=== PATIENT | female | born 1995 | race Caucasian/White ===

== ENCOUNTER 2017-10-21 21:17 | Emergency (ER) | payer OTHER ==
[2017-10-21 21:24] VITALS: RESP 18
[2017-10-21] MEDS ORDERED: ACETAMINOPHEN TAB 325 MG TAB PO STA (21:38)
--- NOTE | 2017-10-21 21:47 | ED ---
Abdominal Pain HPI - General Chief Complaint: Abdominal Pain Stated Complaint: 19 wks/abdominal pain Time Seen by Provider: 10/21/17 21:29 Source: patient, family Mode of arrival: ambulatory Limitations: no limitations - History of Present Illness Initial Comments: This patient is a 22-year-old woman who presents to be evaluated for suprapubic pain. The patient states that she had been lying in bed at approximately 90 minutes prior to arrival when she started noticing what she is describing as sharp, constant, lower abdominal pains. She indicates the bilateral lower quadrants and suprapubic area. The patient is unable to recall anything that precipitated pain. She denies any factors that seem to make the pain get better or worse. She has not noted any associated symptoms, denying change in urination, bowel movements, nausea or vomiting, fevers, rash. Patient denies any vaginal bleeding or discharge. She does state patient has [address] Valdez for her obstetrical care. She did have an ultrasound that was normal. MD Complaint: abdominal pain Onset/Timin -: hour(s) Location: suprapubic Radiation: none Migration to: no migration Severity: moderate Quality: sharp Consistency: constant Improves With: nothing Worsens With: nothing Associated Symptoms: denies other symptoms - Related Data LMP (females 10-50): other (19 weeks) Patient : Yes Home Medications Medication Instructions Recorded Confirmed Pnv,Calcium 72/Iron/Folic Acid 1 tab PO DAILY 10/21/17 10/21/17 [ Plus Tablet] Previous Rx's Medication Instructions Recorded Cephalexin [Keflex] 500 mg PO Q6HR #28 cap 10/21/17 Allergies Allergy/AdvReac Type Severity Reaction Status Date / Time Penicillins Allergy Itching Verified 10/21/17 21:30 Review of Systems ROS Statement: Those systems with pertinent positive or pertinent negative responses have been documented in the HPI. ROS Other: All systems not noted in ROS Statement are negative. Constitutional: Denies: fever, chills Respiratory: Denies: cough, dyspnea Cardiovascular: Denies: chest pain, palpitations Gastrointestinal: Reports: as per HPI, abdominal pain. Denies: nausea, vomiting , diarrhea, constipation, melena, hematochezia Genitourinary: Denies: dysuria, hematuria, discharge, abnormal menses Musculoskeletal: Denies: back pain Skin: Denies: rash Neurological: Denies: headache, weakness, numbness Past Medical History Past Medical History: No Reported History Additional Past Medical History / Comment(s): Hiatal Hernia History of Any Multi-Drug Resistant Organisms: None Reported Past Surgical History: No Surgical Hx Reported Past Psychological History: Anxiety Smoking Status: Current every day smoker Past Alcohol Use History: None Reported Past Drug Use History: None Reported General Exam Limitations: no limitations General appearance: alert, in no apparent distress Head exam: Present: atraumatic, normocephalic Eye exam: Present: normal appearance. Absent: scleral icterus, conjunctival injection ENT exam: Present: normal oropharynx Neck exam: Present: normal inspection Respiratory exam: Present: normal lung sounds bilaterally. Absent: respiratory distress, wheezes, rales, rhonchi, stridor Cardiovascular Exam: Present: regular rate, normal rhythm, normal heart sounds. Absent: systolic murmur, diastolic murmur, rubs, gallop GI/Abdominal exam: Present: soft, normal bowel sounds, mass (There is fullness in the lower abdomen with what appears to be gravid uterus palpable 1-2 cm below the umbilicus.). Absent: distended, tenderness, guarding, rebound, rigid , pulsatile mass, hernia Extremities exam: Present: normal inspection, normal capillary refill. Absent: pedal edema, calf tenderness Back exam: Present: normal inspection. Absent: CVA tenderness (R), CVA tenderness (L) Neurological exam: Present: alert Skin exam: Present: warm, dry, intact, normal color. Absent: rash Course Vital Signs 10/21/17 21:21 Temperature 98.9 F Pulse Rate 93 Respiratory 18 Rate Blood Pressure 112/74 O2 Sat by Pulse 100 Oximetry Medical Decision Making - Lab Data Result diagrams: 10/21/17 22:00 10/21/17 22:00 Lab Results 10/21/17 10/21/17 10/21/17 Range/Units 21:28 22:00 22:00 WBC 12.6 H (3.8-10.6) k/uL RBC 3.65 L (3.80-5.40) m/uL Hgb 11.0 L (11.4-16.0) gm/dL Hct 33.3 L (34.0-46.0) % MCV 91.1 (80.0-100.0) fL MCH 30.3 (25.0-35.0) pg MCHC 33.2 (31.0-37.0) g/dL RDW 13.0 (11.5-15.5) % Plt Count 258 (150-450) k/uL Neutrophils % 72 % Lymphocytes % 19 % Monocytes % 6 % Eosinophils % 2 % Basophils % 0 % Neutrophils # 9.0 H (1.3-7.7) k/uL Lymphocytes # 2.4 (1.0-4.8) k/uL Monocytes # 0.7 (0-1.0) k/uL Eosinophils # 0.2 (0-0.7) k/uL Basophils # 0.0 (0-0.2) k/uL Sodium 137 (137-145) mmol/L Potassium 4.0 (3.5-5.1) mmol/L Chloride 107 (98-107) mmol/L Carbon Dioxide 23 (22-30) mmol/L Anion Gap 7 mmol/L BUN 6 L (7-17) mg/dL Creatinine 0.40 L (0.52-1.04) mg/dL Est GFR (MDRD) Af Amer >60 (>60 ml/min/1.73 sqM) Est GFR (MDRD) Non-Af >60 (>60 ml/min/1.73 sqM) Glucose 78 (74-99) mg/dL Calcium 9.7 (8.4-10.2) mg/dL Total Bilirubin 0.2 (0.2-1.3) mg/dL AST 29 (14-36) U/L ALT 29 (9-52) U/L Alkaline Phosphatase 63 (38-126) U/L Total Protein 6.3 (6.3-8.2) g/dL Albumin 3.5 (3.5-5.0) g/dL Urine Color Light Yellow Urine Appearance Cloudy H (Clear) Urine pH 7.5 (5.0-8.0) Ur Specific [place] 1.004 (1.001-1.035) Urine Protein Negative (Negative) Urine Glucose (UA) Negative (Negative) Urine Ketones Negative (Negative) Urine Blood Negative (Negative) Urine Nitrite Negative (Negative) Urine Bilirubin Negative (Negative) Urine Urobilinogen <2.0 (<2.0) mg/dL Ur Leukocyte Esterase Small H (Negative) Urine RBC 2 (0-5) /hpf Urine WBC 2 (0-5) /hpf Ur Squamous Epith Cells 2 (0-4) /hpf Urine Bacteria Moderate H (None) /hpf Disposition Clinical Impression: Abdominal pain, Bacteriuria Disposition: HOME SELF-CARE Condition: Good Instructions: Abdominal Pain (ED), Urinary Tract Infection in (ED) Prescriptions: Cephalexin [Keflex] 500 mg PO Q6HR #28 cap Referrals: None,Stated [Primary Care Provider] - 1-2 days Gale Valdez, [Doctor of Osteopathic Medicine] - 1-2 days
[2017-10-21 21:51] LABS: Appearance,Urine Cloudy (Clear); Bacteria,Urine Moderate /hpf; Bilirubin,Urine Negative (Negative); Blood,Urine Negative (Negative); Color,Urine Light Yellow; Glucose,Urine (UA) Negative (Negative); Ketones,Urine Negative (Negative); Leukocyte Esterase,Urine Small (Negative); Nitrite,Urine Negative (Negative); PH, Urine 7.5 (5.0-8.0); Protein,Urine Negative (Negative); RBC,Urine 2 /hpf (0-5); Specific Gravity,Urine 1.004 (1.001-1.035); Squamous Epithelial Cell,Urine 2 /hpf (0-4); Urobilinogen,Urine <2.0 mg/dL (<2.0); WBC,Urine 2 /hpf (0-5)
[2017-10-21 22:12] LABS: Basophils % (A) 0 %; Eosinophils # (A) 0.2 k/uL (0-0.7); Eosinophils % (A) 2 %; HCT 33.3 % (34.0-46.0); Lymphocytes # (A) 2.4 k/uL (1.0-4.8); Lymphocytes % (A) 19 %; MCH 30.3 pg (25.0-35.0); MCHC 33.2 g/dL (31.0-37.0); MCV 91.1 fL (80.0-100.0); Monocytes # (A) 0.7 k/uL (0-1.0); Monocytes % (A) 6 %; Neutrophils % (A) 72 %; Platelet Count 258 k/uL (150-450); RBC 3.65 m/uL (3.80-5.40); WBC 12.6 k/uL (3.8-10.6)
[2017-10-21 22:30] LABS: Albumin 3.5 g/dL (3.5-5.0); Anion Gap 7 mmol/L; Calcium 9.7 mg/dL (8.4-10.2); Carbon Dioxide 23 mmol/L (22-30); Chloride 107 mmol/L (98-107); Glucose 78 mg/dL (74-99); Sodium 137 mmol/L (137-145); Total Bilirubin 0.2 mg/dL (0.2-1.3); Total Protein 6.3 g/dL (6.3-8.2)
[2017-10-21 22:34] LABS: ALT 29 U/L (9-52); AST 29 U/L (14-36); Alkaline Phosphatase 63 U/L (38-126); Blood Urea Nitrogen 6 mg/dL (7-17)
[2017-10-21 23:31] VITALS: BP 94/56; PULSE 71; TEMP 98.4
== END 2017-10-21 23:30 | disposition home or self-care (01) ==
LOC: EC 21:17
DX: O23.92 Unspecified genitourinary tract infection in pregnancy, second trimester (principal); R82.71 Bacteriuria; O99.89 Other specified diseases and conditions complicating pregnancy, childbirth and the puerperium; R10.31 Right lower quadrant pain; R10.32 Left lower quadrant pain; O99.332 Smoking (tobacco) complicating pregnancy, second trimester; F17.200 Nicotine dependence, unspecified, uncomplicated; Z79.899 Other long term (current) drug therapy; Z88.0 Allergy status to penicillin; Z3A.19 19 weeks gestation of pregnancy
CPT/HCPCS: 36415; 80053; 81001; 85025; 99284

== ENCOUNTER 2017-11-15 10:19 | Emergency (ER) | payer OTHER ==
[2017-11-15 10:24] VITALS: RESP 18
[2017-11-15] MEDS ORDERED: SODIUM CHLORIDE 0.9% 2,000 ML IV STA (10:39)
[2017-11-15] MEDS ORDERED: METOCLOPRAMIDE 5 MG/ML 2 ML VIAL IVP STA (10:39)
[2017-11-15] MEDS ORDERED: ACETAMINOPHEN IV (For NPO) 1,000 MG in EMPTY BAG 1 BAG IVPB STA (10:45)
--- NOTE | 2017-11-15 10:45 | ED ---
Nausea/Vomiting/Diarrhea HPI - General Chief complaint: Nausea/Vomiting/Diarrhea Stated complaint: Vomiting-22 wks Time Seen by Provider: 11/15/17 10:31 Source: patient, family, RN notes reviewed Mode of arrival: wheelchair Limitations: no limitations - History of Present Illness Initial comments: 22-year-old female presents emergency Department chief complaint of nausea vomiting. Patient states that symptoms started last night worse since morning. Patient states she cannot keep anything down. Patient states that she aches all over. Patient states that her family has been recently diagnosed with influenza. Patient denies any dysuria hematuria. Patient took Tylenol at 1: 00. Patient denies any headache or dizziness chest pain or shortness of breath. Denies any vaginal bleeding or vaginal discharge. Patient's FINANCIAL RECORDING CLERK is Dr. Valdez. Patient is A0. - Related Data Home Medications Medication Instructions Recorded Confirmed Pnv,Calcium 72/Iron/Folic Acid 1 tab PO DAILY 10/21/17 11/15/17 [ Plus Tablet] Previous Rx's Medication Instructions Recorded Cephalexin [Keflex] 500 mg PO Q8HR #15 cap 11/15/17 Oseltamivir [Tamiflu] 75 mg PO Q12HR #10 cap 11/15/17 Allergies Allergy/AdvReac Type Severity Reaction Status Date / Time Penicillins Allergy Itching Verified 11/15/17 11:11 Review of Systems ROS Statement: Those systems with pertinent positive or pertinent negative responses have been documented in the HPI. ROS Other: All systems not noted in ROS Statement are negative. Past Medical History Past Medical History: No Reported History Additional Past Medical History / Comment(s): Hiatal Hernia History of Any Multi-Drug Resistant Organisms: None Reported Past Surgical History: No Surgical Hx Reported Past Psychological History: Anxiety Smoking Status: Current every day smoker Past Alcohol Use History: None Reported Past Drug Use History: None Reported General Exam Limitations: no limitations General appearance: alert, in no apparent distress Head exam: Present: atraumatic, normocephalic, normal inspection Eye exam: Present: normal appearance, PERRL, EOMI. Absent: scleral icterus, conjunctival injection, periorbital swelling ENT exam: Present: normal exam, normal oropharynx, mucous membranes moist, TM's normal bilaterally, normal external ear exam Neck exam: Present: normal inspection, full ROM. Absent: tenderness, meningismus, lymphadenopathy Respiratory exam: Present: normal lung sounds bilaterally. Absent: respiratory distress, wheezes, rales, rhonchi, stridor Cardiovascular Exam: Present: normal rhythm, tachycardia, normal heart sounds. Absent: systolic murmur, diastolic murmur, rubs, gallop, clicks GI/Abdominal exam: Present: soft, normal bowel sounds. Absent: distended, tenderness, guarding, rebound, rigid Neurological exam: Present: alert Skin exam: Present: warm, dry, intact, normal color. Absent: rash Course Vital Signs 11/15/17 11/15/17 10:21 12:03 Temperature 100.2 F H 98.4 F Pulse Rate 113 H 108 H Respiratory 18 Rate Blood Pressure 107/56 95/50 O2 Sat by Pulse 100 96 Oximetry Medical Decision Making - Medical Decision Making 22-year-old female presented emergency from for nausea vomiting, body aches. Patient's influenza A positive. Patient does have some asymptomatic bacteriuria in . Patient was started on antibiotics urine cultured. Patient was well-hydrated emergency department states that she feels much better. Patient will be discharged follow-up with Dr. Valdez FINANCIAL RECORDING CLERK return for any worsening symptoms. - Lab Data Result diagrams: 11/15/17 11:10 11/15/17 11:10 Lab Results 11/15/17 11/15/17 11/15/17 Range/Units 11:10 11:10 11:10 WBC 9.5 (3.8-10.6) k/uL RBC 3.33 L (3.80-5.40) m/uL Hgb 10.2 L (11.4-16.0) gm/dL Hct 30.5 L (34.0-46.0) % MCV 91.5 (80.0-100.0) fL MCH 30.5 (25.0-35.0) pg MCHC 33.3 (31.0-37.0) g/dL RDW 12.1 (11.5-15.5) % Plt Count 234 (150-450) k/uL Neutrophils % 91 % Lymphocytes % 2 % Monocytes % 6 % Eosinophils % 0 % Basophils % 0 % Neutrophils # 8.7 H (1.3-7.7) k/uL Lymphocytes # 0.2 L (1.0-4.8) k/uL Monocytes # 0.5 (0-1.0) k/uL Eosinophils # 0.0 (0-0.7) k/uL Basophils # 0.0 (0-0.2) k/uL Sodium 136 L (137-145) mmol/L Potassium 3.7 (3.5-5.1) mmol/L Chloride 103 (98-107) mmol/L Carbon Dioxide 24 (22-30) mmol/L Anion Gap 9 mmol/L BUN 5 L (7-17) mg/dL Creatinine 0.50 L (0.52-1.04) mg/dL Est GFR (MDRD) Af Amer >60 (>60 ml/min/1.73 sqM) Est GFR (MDRD) Non-Af >60 (>60 ml/min/1.73 sqM) Glucose 85 (74-99) mg/dL Calcium 9.1 (8.4-10.2) mg/dL Total Bilirubin 0.1 L (0.2-1.3) mg/dL AST 24 (14-36) U/L ALT 29 (9-52) U/L Alkaline Phosphatase 77 (38-126) U/L Total Protein 6.2 L (6.3-8.2) g/dL Albumin 3.6 (3.5-5.0) g/dL Amylase 32 (30-110) U/L Lipase 75 (23-300) U/L Urine Color Urine Appearance (Clear) Urine pH (5.0-8.0) Ur Specific [place] (1.001-1.035) Urine Protein (Negative) Urine Glucose (UA) (Negative) Urine Ketones (Negative) Urine Blood (Negative) Urine Nitrite (Negative) Urine Bilirubin (Negative) Urine Urobilinogen (<2.0) mg/dL Ur Leukocyte Esterase (Negative) Urine WBC (0-5) /hpf Ur Squamous Epith Cells (0-4) /hpf Urine Bacteria (None) /hpf Urine Mucus (None) /hpf Influenza Type A RNA Detected H (Not Detectd) Influenza Type B (PCR) Not Detected (Not Detectd) 11/15/17 Range/Units 11:10 WBC (3.8-10.6) k/uL RBC (3.80-5.40) m/uL Hgb (11.4-16.0) gm/dL Hct (34.0-46.0) % MCV (80.0-100.0) fL MCH (25.0-35.0) pg MCHC (31.0-37.0) g/dL RDW (11.5-15.5) % Plt Count (150-450) k/uL Neutrophils % % Lymphocytes % % Monocytes % % Eosinophils % % Basophils % % Neutrophils # (1.3-7.7) k/uL Lymphocytes # (1.0-4.8) k/uL Monocytes # (0-1.0) k/uL Eosinophils # (0-0.7) k/uL Basophils # (0-0.2) k/uL Sodium (137-145) mmol/L Potassium (3.5-5.1) mmol/L Chloride (98-107) mmol/L Carbon Dioxide (22-30) mmol/L Anion Gap mmol/L BUN (7-17) mg/dL Creatinine (0.52-1.04) mg/dL Est GFR (MDRD) Af Amer (>60 ml/min/1.73 sqM) Est GFR (MDRD) Non-Af (>60 ml/min/1.73 sqM) Glucose (74-99) mg/dL Calcium (8.4-10.2) mg/dL Total Bilirubin (0.2-1.3) mg/dL AST (14-36) U/L ALT (9-52) U/L Alkaline Phosphatase (38-126) U/L Total Protein (6.3-8.2) g/dL Albumin (3.5-5.0) g/dL Amylase (30-110) U/L Lipase (23-300) U/L Urine Color Yellow Urine Appearance Cloudy H (Clear) Urine pH 8.0 (5.0-8.0) Ur Specific [place] 1.017 (1.001-1.035) Urine Protein 1+ H (Negative) Urine Glucose (UA) Negative (Negative) Urine Ketones 1+ H (Negative) Urine Blood Negative (Negative) Urine Nitrite Negative (Negative) Urine Bilirubin Negative (Negative) Urine Urobilinogen <2.0 (<2.0) mg/dL Ur Leukocyte Esterase Moderate H (Negative) Urine WBC 4 (0-5) /hpf Ur Squamous Epith Cells 7 H (0-4) /hpf Urine Bacteria Few H (None) /hpf Urine Mucus Rare H (None) /hpf Influenza Type A RNA (Not Detectd) Influenza Type B (PCR) (Not Detectd) Disposition Clinical Impression: Asymptomatic bacteriuria during , Influenza A, Nausea & vomiting Disposition: HOME SELF-CARE Condition: Stable Instructions: Influenza (ED) Additional Instructions: Please return to the Emergency Department if symptoms worsen or any other concerns. Prescriptions: Cephalexin [Keflex] 500 mg PO Q8HR #15 cap Oseltamivir [Tamiflu] 75 mg PO Q12HR #10 cap Referrals: None,Stated [Primary Care Provider] - 1-2 days Time of Disposition: 12:20
[2017-11-15 11:29] LABS: Basophils % (A) 0 %; Eosinophils % (A) 0 %; HCT 30.5 % (34.0-46.0); HGB 10.2 gm/dL (11.4-16.0); Lymphocytes # (A) 0.2 k/uL (1.0-4.8); Lymphocytes % (A) 2 %; MCH 30.5 pg (25.0-35.0); MCHC 33.3 g/dL (31.0-37.0); MCV 91.5 fL (80.0-100.0); Mean Platelet Volume 6.7; Monocytes # (A) 0.5 k/uL (0-1.0); Monocytes % (A) 6 %; Neutrophils # (A) 8.7 k/uL (1.3-7.7); Neutrophils % (A) 91 %; Platelet Count 234 k/uL (150-450); RBC 3.33 m/uL (3.80-5.40); RDW 12.1 % (11.5-15.5); WBC 9.5 k/uL (3.8-10.6)
[2017-11-15 11:35] LABS: ALT 29 U/L (9-52); AST 24 U/L (14-36); Albumin 3.6 g/dL (3.5-5.0); Alkaline Phosphatase 77 U/L (38-126); Amylase 32 U/L (30-110); Anion Gap 9 mmol/L; Blood Urea Nitrogen 5 mg/dL (7-17); Calcium 9.1 mg/dL (8.4-10.2); Carbon Dioxide 24 mmol/L (22-30); Chloride 103 mmol/L (98-107); Glucose 85 mg/dL (74-99); Lipase 75 U/L (23-300); Potassium 3.7 mmol/L (3.5-5.1); Sodium 136 mmol/L (137-145); Total Bilirubin 0.1 mg/dL (0.2-1.3); Total Protein 6.2 g/dL (6.3-8.2)
[2017-11-15 11:48] LABS: Appearance,Urine Cloudy (Clear); Bacteria,Urine Few /hpf; Bilirubin,Urine Negative (Negative); Blood,Urine Negative (Negative); Color,Urine Yellow; Glucose,Urine (UA) Negative (Negative); Ketones,Urine 1+ (Negative); Leukocyte Esterase,Urine Moderate (Negative); Mucus,Urine Rare /hpf; Nitrite,Urine Negative (Negative); Protein,Urine 1+ (Negative); Specific Gravity,Urine 1.017 (1.001-1.035); Squamous Epithelial Cell,Urine 7 /hpf (0-4); Urobilinogen,Urine <2.0 mg/dL (<2.0); WBC,Urine 4 /hpf (0-5)
[2017-11-15 13:01] VITALS: BP 110/59; PULSE 103; TEMP 98.7
== END 2017-11-15 13:00 | disposition home or self-care (01) ==
LOC: EC 10:19
DX: O99.89 Other specified diseases and conditions complicating pregnancy, childbirth and the puerperium (principal); R82.71 Bacteriuria; O99.512 Diseases of the respiratory system complicating pregnancy, second trimester; J10.1 Influenza due to other identified influenza virus with other respiratory manifestations; O21.2 Late vomiting of pregnancy; O99.332 Smoking (tobacco) complicating pregnancy, second trimester; F17.200 Nicotine dependence, unspecified, uncomplicated; Z3A.22 22 weeks gestation of pregnancy; Z88.0 Allergy status to penicillin; Z79.899 Other long term (current) drug therapy
CPT/HCPCS: 99284; 96365; 96375; 36415; 80053; 82150; 83690; 85025; 81001; 87086; 87502; J2765; J0131

== ENCOUNTER 2017-11-27 22:07 | Emergency (ER) | payer OTHER ==
[2017-11-27 22:19] VITALS: BP 103/56; PULSE 89; RESP 18; TEMP 98.5
--- NOTE | 2017-11-27 22:39 | XR ---
EXAMINATION TYPE: XR ankle complete LT DATE OF EXAM: 11/27/2017 COMPARISON: NONE HISTORY: Ankle pain TECHNIQUE: 3 views FINDINGS: There is soft tissue swelling over the lateral malleolus. Ankle mortise is anatomic. I see no fracture nor dislocation. IMPRESSION: Mild soft tissue swelling. No fracture seen.
--- NOTE | 2017-11-27 22:41 | ED ---
Lower Extremity Injury HPI - General Chief Complaint: Extremity Injury, Lower Stated Complaint: ankle injury Time Seen by Provider: 11/27/17 22:27 Source: patient, RN notes reviewed Mode of arrival: wheelchair Limitations: no limitations - History of Present Illness Initial Comments: 22-year-old female presented from for left ankle pain. Patient states that she was walking twisted her ankle and felt a pop. She is concerned that she had a prior fracture to this ankle. She has pain is on the lateral aspect and her some swelling. Denies any foot pain, proximal leg pain. Denies any paresthesias. Patient states she is though she did not fall and strike her abdomen. He has no complaints. Patient also complains of fluid in her right ear denies fevers or chills. - Related Data Home Medications Medication Instructions Recorded Confirmed Pnv,Calcium 72/Iron/Folic Acid 1 tab PO DAILY 10/21/17 11/15/17 [ Plus Tablet] Previous Rx's Medication Instructions Recorded Cephalexin [Keflex] 500 mg PO Q8HR #15 cap 11/15/17 Oseltamivir [Tamiflu] 75 mg PO Q12HR #10 cap 11/15/17 Allergies Allergy/AdvReac Type Severity Reaction Status Date / Time Penicillins Allergy Itching Verified 11/27/17 22:16 Review of Systems ROS Statement: Those systems with pertinent positive or pertinent negative responses have been documented in the HPI. ROS Other: All systems not noted in ROS Statement are negative. Past Medical History Past Medical History: No Reported History Additional Past Medical History / Comment(s): Hiatal Hernia History of Any Multi-Drug Resistant Organisms: None Reported Past Surgical History: No Surgical Hx Reported Past Psychological History: Anxiety Smoking Status: Current every day smoker Past Alcohol Use History: None Reported Past Drug Use History: None Reported General Exam Limitations: no limitations General appearance: alert, in no apparent distress Head exam: Present: atraumatic, normocephalic, normal inspection Eye exam: Present: normal appearance, PERRL, EOMI. Absent: scleral icterus, conjunctival injection, periorbital swelling ENT exam: Present: normal exam, normal oropharynx, mucous membranes moist, TM's normal bilaterally, normal external ear exam Neck exam: Present: normal inspection, full ROM. Absent: tenderness, meningismus, lymphadenopathy Respiratory exam: Present: normal lung sounds bilaterally. Absent: respiratory distress, wheezes, rales, rhonchi, stridor Cardiovascular Exam: Present: regular rate, normal rhythm, normal heart sounds. Absent: systolic murmur, diastolic murmur, rubs, gallop, clicks Extremities exam: Present: other (Left ankle there is mild swelling the lateral aspect, tenderness of the lateral malleolus no foot tenderness no proximal tib- fib tenderness neurovascular intact) Course Vital Signs 11/27/17 22:16 Temperature 98.5 F Pulse Rate 89 Respiratory 18 Rate Blood Pressure 103/56 O2 Sat by Pulse 98 Oximetry Medical Decision Making - Medical Decision Making 22-year-old female presented for left ankle pain, right ear pressure. Patient x -rays reviewed no acute fracture. Patient has some fluid in her right ear consistent with eustachian tube dysfunction there is no signs of infection. Disposition Clinical Impression: Left ankle sprain, Eustachian tube dysfunction Disposition: HOME SELF-CARE Condition: Stable Instructions: Ankle Sprain (ED) Additional Instructions: Please return to the Emergency Department if symptoms worsen or any other concerns. Referrals: None,Stated [Primary Care Provider] - 1-2 days Time of Disposition: 22:41
== END 2017-11-27 22:50 | disposition home or self-care (01) ==
LOC: EC 22:07
DX: O9A.212 Injury, poisoning and certain other consequences of external causes complicating pregnancy, second trimester (principal); S93.402A Sprain of unspecified ligament of left ankle, initial encounter; O99.332 Smoking (tobacco) complicating pregnancy, second trimester; F17.200 Nicotine dependence, unspecified, uncomplicated; Z3A.24 24 weeks gestation of pregnancy; Z88.0 Allergy status to penicillin; X50.1XXA Overexertion from prolonged static or awkward postures, initial encounter
CPT/HCPCS: 99283

== ENCOUNTER 2018-02-24 23:12 | Outpatient (CLI) | payer OTHER ==
[2018-02-24 23:47] VITALS: BP 128/81; PULSE 71; RESP 16; TEMP 98.2
--- NOTE | 2018-04-14 08:24 | P.MSEPDOC ---
Presenting Problems - Arrival Data Date of Arrival on Unit: 02/24/18 Time of Arrival on Unit: 23:10 Mode of Transport: Ambulatory - Complaint OB-Reason for Admission/Chief Complaint: Possible Onset of Labor Comment: ctx for 3 days stronger today Medical History - Information : 1 Para: 0 Term: 0 : 0 Abortions: Spontaneous or Elective: 0 Number of Living Children: 0 - Gestational Age Gestational Age by ALMAS (wks/days): 37 Weeks and 0 Days - History Complications: Smoker Comment: gbs unknown Review of Systems - Review of Systems Constitutional: No problems Breast: No problems ENT: No problems Cardiovascular: No problems Respiratory: No problems Gastrointestinal: No problems Genitourinary: No problems Musculoskeletal: No problems Neurological: No problems Skin: No problems Vital Signs - Temperature Temperature: 98.2 F Temperature Source: Temporal Artery Scan - Pulse Right Brachial Pulse Rate: 71 Pulse Assessment Method: Automatic Cuff - Respirations Respiratory Rate: 16 Oxygen Delivery Method: Room Air O2 Sat by Pulse Oximetry: 98 - Blood Pressure Right Arm Blood Pressure: 128/81 Blood Pressure Mean: 96 Blood Pressure Source: Automatic Cuff Medical Screen Scoring (Pre) - Cervical Exam Dilation: 1-3 cm = 1 Effacement: More than 50% = 2 Membranes: Intact - Uterine Contractions Frequency: > 5 minutes apart = 1 Duration: > 40 seconds = 2 Intensity: N/A - Maternal Vital Signs Maternal Temperature: N/A Maternal Blood Pressure: N/A Signs of Preeclampsia: N/A Maternal Respirations: N/A - Pain Assessment Pain Location and Character: Abdomen Pain Scale Used: Numeric (1 - 10) Pain Intensity: 7 Pain Description: *Acute, Tightness Pain Frequency: Intermittent Pain Duration: 3 Pain Duration Units: Hours Pain Behavior: None Exhibited Pain Aggravating Factors: Contractions - Maternal Trauma Maternal Trauma: N/A - Assessment Baseline FHR: 125 Heart Rate - NICHD Category: Category I (Normal) = 0 NST: Reactive Position: N/A Station: N/A - Total Score Total Score (Pre): 6 - Level of Risk Level of Risk: Medium (6-9) Medical Screen Scoring (Post) - Cervical Exam Dilation: 1-3 cm = 1 Effacement: More than 50% = 2 Membranes: Intact - Uterine Contractions Frequency: > 5 minutes apart = 1 Duration: > 40 seconds = 2 Intensity: N/A - Total Score Total Score (Post): 6 - Post Treatment Level of Risk Post Treatment Level of Risk: Medium (6-9) Physician Notification (Post) - Physician Notified Physician Notified Date: 02/25/18 Physician Notified Time: 00:56 Spoke With: Courtney New Order Received: Yes (discharge with instruction) - Notification Comment Comment: pt has appt Sunday Disposition - Disposition OB Disposition: Discharge to home, Written follow up instructions reviewed Discharge Date: 02/25/18 Discharge Time: 01:00 I agree with the RN Medical Screening Exam: Yes Risk & Benefit of care provided described in d/c instruction: Yes Diagnosis: FALSE LABOR BEFORE 37 COMPLETED WEEKS OF GEST, THIRD TRI
== END 2018-02-25 01:00 | disposition home or self-care (01) ==
LOC: FBPOP 23:12
PROVIDERS: ATTEND Obstetrics & Gynecology Obstetrics
DX: O47.1 False labor at or after 37 completed weeks of gestation (principal); Z3A.37 37 weeks gestation of pregnancy
CPT/HCPCS: 59025; G0463; 99213

== ENCOUNTER 2018-02-26 08:54 | Outpatient (CLI) | payer OTHER ==
[2018-02-26 09:16] VITALS: BP 115/72; PULSE 93; RESP 18; TEMP 96.8
--- NOTE | 2018-04-14 08:26 | P.MSEPDOC ---
Presenting Problems - Arrival Data Date of Arrival on Unit: 02/26/18 Time of Arrival on Unit: 08:54 Mode of Transport: Ambulatory - Complaint OB-Reason for Admission/Chief Complaint: Decreased Movement Medical History - Information : 1 Para: 0 Term: 0 : 0 Abortions: Spontaneous or Elective: 0 Number of Living Children: 0 - Gestational Age Gestational Age by ALMAS (wks/days): 37 Weeks and 1 Days - History Complications: Smoker Review of Systems - Review of Systems Constitutional: No problems Breast: No problems ENT: No problems Cardiovascular: No problems Respiratory: No problems Gastrointestinal: No problems Genitourinary: No problems Musculoskeletal: No problems Neurological: No problems Skin: No problems Vital Signs - Temperature Temperature: 96.8 F Temperature Source: Temporal Artery Scan - Pulse Right Brachial Pulse Rate: 93 - Respirations Respiratory Rate: 18 Oxygen Delivery Method: Room Air - Blood Pressure Right Arm Blood Pressure: 115/72 Blood Pressure Mean: 86 Medical Screen Scoring (Pre) - Cervical Exam Dilation: 1-3 cm = 1 Effacement: More than 50% = 2 Membranes: Intact - Uterine Contractions Frequency: > 5 minutes apart = 1 Duration: > 40 seconds = 2 Intensity: N/A - Maternal Vital Signs Maternal Temperature: N/A Maternal Blood Pressure: N/A Signs of Preeclampsia: N/A Maternal Respirations: N/A - Pain Assessment Pain Scale Used: Numeric (1 - 10) Pain Intensity: 6 Pain Description: *Acute, Cramping, Pressure Pain Radiation Location: none Pain Frequency: Daily Pain Behavior: None Exhibited - Maternal Trauma Maternal Trauma: N/A - Assessment Position: N/A Station: N/A - Total Score Total Score (Pre): 6 - Level of Risk Level of Risk: Medium (6-9) Physician Notification (Pre) - Physician Notified Physician Notified Date: 02/26/18 Medical Screen Scoring (Post) - Cervical Exam Dilation: 1-3 cm = 1 Effacement: More than 50% = 2 Membranes: Intact - Uterine Contractions Frequency: > 5 minutes apart = 1 Duration: > 40 seconds = 2 - Maternal Vital Signs Maternal Temperature: N/A Signs of Preeclampsia: N/A Maternal Respirations: N/A - Maternal Trauma Maternal Trauma: N/A - Assessment Heart Rate: 140 Heart Rate - NICHD Category: Category I (Normal) = 0 NST: Reactive Position: N/A Station: N/A - Total Score Total Score (Post): 6 - Post Treatment Level of Risk Post Treatment Level of Risk: Medium (6-9) Physician Notification (Post) - Physician Notified Physician Notified Date: 02/26/18 Physician Notified Time: 10:49 Physician/Practitioner Notified:: Dr. Valdez Spoke With: Dr. Valdez New Order Received: Yes - Notification Comment Comment: discharge pt home and follow up in office tomorrow with Dr. Valdez at scheduled appt Disposition - Disposition OB Disposition: Triage, Discharge to home, Written follow up instructions reviewed Discharge Date: 02/26/18 Discharge Time: 11:00 I agree with the RN Medical Screening Exam: Yes Risk & Benefit of care provided described in d/c instruction: Yes Diagnosis: DECREASED MOVEMENTS, THIRD TRIMESTER, FETUS 1
== END 2018-02-26 11:00 | disposition home or self-care (01) ==
LOC: FBPOP 08:54
PROVIDERS: ATTEND Obstetrics & Gynecology Obstetrics
DX: O36.8131 Decreased fetal movements, third trimester, fetus 1 (principal); O99.333 Smoking (tobacco) complicating pregnancy, third trimester; Z3A.37 37 weeks gestation of pregnancy
CPT/HCPCS: 59025; G0463; 99213

== ENCOUNTER 2018-03-11 05:40 | Inpatient (IN) | payer OTHER ==
[2018-03-11] MEDS ORDERED: OXYTOCIN 10 UNIT/ML 1 ML VIAL IM PRN (06:06)
[2018-03-11] MEDS ORDERED: CARBOPROST TROMETHAMINE 250 MCG/ML 1 ML AMP IM PRN (06:06)
[2018-03-11] MEDS ORDERED: TERBUTALINE 1 MG/ML VIAL SQ PRN (06:06)
[2018-03-11] MEDS ORDERED: LIDOCAINE 1% (PF) 10 MG/ML (30 ML SDV) SQ PRN (06:06)
[2018-03-11] MEDS ORDERED: METHYLERGONOVINE 0.2 MG/ML 1 ML AMP IM PRN (06:06)
[2018-03-11] MEDS ORDERED: OXYTOCIN 20 UNITS/1000 ML NS 1,000 ML IV SCH ×2 (06:15→11:30)
[2018-03-11 06:17] LABS: Basophils % (A) 0 %; Eosinophils # (A) 0.2 k/uL (0-0.7); Eosinophils % (A) 2 %; HGB 11.1 gm/dL (11.4-16.0); Lymphocytes # (A) 2.4 k/uL (1.0-4.8); Lymphocytes % (A) 18 %; MCH 30.2 pg (25.0-35.0); MCHC 33.6 g/dL (31.0-37.0); MCV 89.8 fL (80.0-100.0); Mean Platelet Volume 7.4; Monocytes # (A) 0.8 k/uL (0-1.0); Monocytes % (A) 6 %; Neutrophils # (A) 9.9 k/uL (1.3-7.7); Neutrophils % (A) 73 %; Platelet Count 232 k/uL (150-450); RBC 3.67 m/uL (3.80-5.40); RDW 13.2 % (11.5-15.5); WBC 13.4 k/uL (3.8-10.6)
[2018-03-11] MEDS: LACTATED RINGERS 1,000 ML IV SCH ×2 (07:11→08:29)
[2018-03-11 07:28] VITALS: BMI 23.3
[2018-03-11] MEDS ORDERED: fentaNYL (PF) 50 MCG/ML 5 ML AMP ONE (08:08)
[2018-03-11] MEDS ORDERED: BUPIVACAINE (PF) 0.25% 30 ML VIAL ONE (08:08)
[2018-03-11] MEDS ORDERED: SODIUM CHLORIDE 0.9% 100 ML BAG ONE (08:08)
--- NOTE | 2018-03-11 11:12 | P.HPOB ---
History of Present Illness H&P Date: 03/11/18 Chief Complaint: IUP @ 39 0/7 weeks, SUBHASH This is a very pleasant 22-year-old 1 para 0 at 39-0/7 weeks that presents for elective induction of labor. Patient was noted to be 4 cm in the office and elected induction. Patient states she is having occasional contractions, notes good movement, no loss of fluid or vaginal bleeding. On blood work she had a blood type of B+, rubella immune, hepatitis B surface antigen negative, HIV negative, GBS negative care has been uncomplicated with myself Review of Systems Constitutional: Reports fatigue, Denies chills, Denies fever Cardiovascular: Denies edema Respiratory: Denies cough, Denies dyspnea Gastrointestinal: Denies constipation, Denies diarrhea Genitourinary: Reports Past Medical History Past Medical History: No Reported History Additional Past Medical History / Comment(s): Hiatal Hernia History of Any Multi-Drug Resistant Organisms: None Reported Past Surgical History: No Surgical Hx Reported Past Anesthesia/Blood Transfusion Reactions: No Reported Reaction Past Psychological History: Anxiety Smoking Status: Current every day smoker Past Alcohol Use History: None Reported Past Drug Use History: None Reported - Past Family History Mother Additional Family Medical History / Comment(s): asthma Medications and Allergies Home Medications Medication Instructions Recorded Confirmed Type Pnv No.95/Ferrous Fum/Folic AC 1 each PO DAILY 02/26/18 03/11/18 History [ Multivitamin Tablet] Allergies Allergy/AdvReac Type Severity Reaction Status Date / Time Penicillins Allergy Itching Verified 03/11/18 06:00 Exam Osteopathic Statement: *. No significant issues noted on an osteopathic structural exam other than those noted in the History and Physical/Consult. - Vital Signs Vital signs: Vital Signs Temp Pulse Resp BP 03/11/18 07:18 97.9 F 66 16 122/80 Intake and Output 03/10/18 03/11/18 03/11/18 22:59 06:59 14:59 Other: # Voids 1 Weight 61.689 kg 61.689 kg - OBG Physical Exam Abdomen: gravid Cervix: 4/100/-2, anterior, AROM clear fluid noted Results Result Diagrams: 03/11/18 06:10 Abnormal Lab Results - Last 24 Hours (Table) 03/11/18 Range/Units 06:10 WBC 13.4 H (3.8-10.6) k/uL RBC 3.67 L (3.80-5.40) m/uL Hgb 11.1 L (11.4-16.0) gm/dL Hct 33.0 L (34.0-46.0) % Neutrophils # 9.9 H (1.3-7.7) k/uL Assessment and Plan (1) Term Current Visit: Yes Status: Acute Code(s): Z34.80 - ENCOUNTER FOR SUPRVSN OF NORMAL , UNSP TRIMESTER SNOMED Code(s): 85465050 Plan: Will admit to labor and delivery with Pitocin induction of labor. Patient does desire epidural which will be placed when she becomes uncomfortable. Anticipate spontaneous vaginal delivery later this afternoon
[2018-03-11] MEDS ORDERED: LANOLIN CREAM 5 GM TUBE TOPICAL PRN (11:18)
[2018-03-11] MEDS ORDERED: diphenhydrAMINE 25 MG CAP PO PRN (11:18)
[2018-03-11] MEDS ORDERED: ZOLPIDEM 5 MG TAB PO PRN (11:18)
[2018-03-11] MEDS ORDERED: HYDROCORTISONE 2.5% RECTAL CREAM 30 GM TUBE RECTAL PRN (11:18)
[2018-03-11] MEDS ORDERED: SIMETHICONE 80 MG CHEWABLE PO PRN (11:18)
[2018-03-11] MEDS ORDERED: diphenhydrAMINE 50 MG/ML 1 ML VIAL IVP PRN ×2 (11:18)
[2018-03-11] MEDS ORDERED: ACETAMINOPHEN TAB 325 MG TAB PO PRN (11:18)
[2018-03-11] MEDS ORDERED: diphenhydrAMINE 50 MG CAP PO PRN (11:18)
[2018-03-11] MEDS ORDERED: IBUPROFEN 600 MG TAB PO PRN (11:18)
[2018-03-11] MEDS ORDERED: WITCH HAZEL 1 EACH MED..PAD TOPICAL PRN (11:18)
[2018-03-11] MEDS ORDERED: BENZOCAINE/MENTHOL SPRAY 1 GM/SPRAY AEROSOL TOPICAL PRN (11:18)
--- NOTE | 2018-03-11 11:18 | P.PROBDLV ---
Vaginal Delivery Note - . Vaginal Delivery Note: This is a very pleasant 22-year-old 2 para 0010 at 39-0/7 weeks that presented for elective induction of labor. Patient progressed through labor without difficulty, amniotomy was performed clear fluid was obtained patient received an epidural for analgesia. Patient progressed to complete began pushing and had a vacuum-assisted vaginal delivery secondary to bradycardia with heart tones noted to be in the 80s despite position change. Vacuum was applied without difficulty, position was confirmed to be occiput anterior, vacuum was noted to be in the green zone for pressure 1 pull and infant was delivered, spontaneous cry was noted on delivery. Estimated blood loss approximate 200 mL. On inspection the patient' s vaginal vault a first degree vaginal laceration was noted and repaired in the usual fashion with 3-0 Rapide. Mother and infant tolerated delivery well and are resting comfortably.
[2018-03-11 13:59] VITALS: RESP 18
[2018-03-11] MEDS: SENNOSIDES-DOCUSATE SODIUM 1 EACH TAB PO SCH (19:51)
[2018-03-12 07:45] VITALS: BP 108/70; PULSE 66; TEMP 98.1
--- NOTE | 2018-03-12 08:04 | P.DS ---
Providers Date of admission: 03/11/18 05:40 Expected date of discharge: 03/12/18 Attending physician: Gale Valdez Primary care physician: Stated None - Discharge Diagnosis(es) (1) Term Current Visit: Yes Status: Acute (2) Status post vaginal delivery Current Visit: Yes Status: Acute Hospital Course: This is a very pleasant 22-year-old 2 para 0010 at 39-0/7 weeks that presented on 64 for elective induction of labor. Patient was started on Pitocin and amniotomy was performed yielding clear fluid patient eventually got an epidural for analgesia and progressed to complete and had a normal spontaneous vaginal delivery of a viable male infant at 1052, weight of 5 lbs. 11 oz. with Apgars of 9 and 9 at one and 5 minutes or sexually. She did sustain a first-degree vaginal laceration was was repaired without difficulty. Patient's course has been uneventful. On this day #1 she is ambulating and voiding without difficulty. She is tolerating a regular diet without nausea or vomiting. She states her pain is well-controlled and she wishes to be discharged home. Patient Condition at Discharge: Good Plan - Discharge Summary New Discharge Prescriptions: No Action Pnv No.95/Ferrous Fum/Folic AC [ Multivitamin Tablet] 1 each PO DAILY Discharge Medication List Pnv No.95/Ferrous Fum/Folic AC [ Multivitamin Tablet] 1 each PO DAILY [History] Follow up Appointment(s)/Referral(s): Gale Valdez DO [Doctor of Osteopathic Medicine] - 1 Week Patient Instructions/Handouts: Vaginal Delivery (DC) Activity/Diet/Wound Care/Special Instructions: no intercourse or tub baths until 6 week . Discharge Disposition: HOME SELF-CARE
[2018-03-12] MEDS ORDERED: PRENATAL VIT-IRON-FOLIC ACID 1 EACH CAP PO SCH (09:00)
[2018-03-12] MEDS: SENNOSIDES-DOCUSATE SODIUM 1 EACH TAB PO SCH (09:30)
== END 2018-03-12 13:15 | disposition home or self-care (01) | DRG 775 ==
LOC: 4FBP 05:40
PROVIDERS: ADMIT Obstetrics & Gynecology Obstetrics; ATTEND Obstetrics & Gynecology Obstetrics
PROC: 10907ZC Drainage of Amniotic Fluid, Therapeutic from Products of Conception, Via Natural or Artificial Opening (ICD-10-PCS; principal; 2018-03-11)
PROC: 3E0R3NZ Introduction of Analgesics, Hypnotics, Sedatives into Spinal Canal, Percutaneous Approach (ICD-10-PCS; principal; 2018-03-11)
PROC: 0HQ9XZZ Repair Perineum Skin, External Approach (ICD-10-PCS; principal; 2018-03-11)
PROC: 3E033VJ Introduction of Other Hormone into Peripheral Vein, Percutaneous Approach (ICD-10-PCS; principal; 2018-03-11)
PROC: 00HU33Z Insertion of Infusion Device into Spinal Canal, Percutaneous Approach (ICD-10-PCS; principal; 2018-03-11)
PROC: 10D07Z6 Extraction of Products of Conception, Vacuum, Via Natural or Artificial Opening (ICD-10-PCS; principal; 2018-03-11)
DX: O76 Abnormality in fetal heart rate and rhythm complicating labor and delivery (principal); Z37.0 Single live birth; O99.334 Smoking (tobacco) complicating childbirth; F17.200 Nicotine dependence, unspecified, uncomplicated; Z3A.39 39 weeks gestation of pregnancy; O70.0 First degree perineal laceration during delivery; Z88.0 Allergy status to penicillin
CPT/HCPCS: 85025; 88307

== ENCOUNTER → 2019-08-22 | Outpatient (CLI) | payer OTHER ==
--- NOTE | 2019-08-22 12:33 | US ---
EXAMINATION TYPE: Transabdominal DATE OF EXAM: 08/22/2019 11:19 AM COMPARISON: NONE CLINICAL HISTORY: Z36 Confirm dates. EXAM PERFORMED: Transabdominal (TA) EXAM MEASUREMENTS: GESTATIONAL AGE / DATING Physician Established: Not yet established Dates by LMP: LMP unknown Dates by First Scan: No previous this is first scan Dates by Current Scan for: (8 weeks/1 days) EDC: 04/01/20 MATERNAL ANATOMY Uterus: 10.0 x 5.4 x 7.6cm Right Ovary: 2.7 x 1.3 x 1.2cm Left Ovary: 3.4 x 1.9 x 2.5cm Post CDS / Adnexa: wnl GESTATION / SURVEY CRL: 1.7cm (8 weeks/1 days) Yolk Sac (normal less than 6mm): 3mm Heart Rate: 176 bpm Rhythm: Normal IUP: Viable IUP Date of LMP: unknown Beta HcG (if available): Not available at this time Live IUP 8 weeks 1 day. IMPRESSION: Single live intrauterine with a calculated sonographic age of 8 weeks and 1 day and estimated date of delivery of 04/01/2020.
== END | disposition home or self-care (01) ==
LOC: RADUSWWP 11:00
PROVIDERS: ATTEND Obstetrics & Gynecology
DX: Z36.89 Encounter for other specified antenatal screening (principal); Z3A.08 8 weeks gestation of pregnancy
CPT/HCPCS: 76801

== ENCOUNTER 2020-03-09 14:39 | Outpatient (CLI) | payer OTHER ==
[2020-03-09 16:00] VITALS: BP 110/68; PULSE 101; RESP 18; TEMP 97.4
--- NOTE | 2020-03-11 09:47 | P.MSEPDOC ---
Presenting Problems - Arrival Data Date of Arrival on Unit: 03/09/20 Time of Arrival on Unit: 14:39 Mode of Transport: Ambulatory - Complaint OB-Reason for Admission/Chief Complaint: Rule Out PROM Comment: pt presented to triage for possible premature SROM, stated she had some leaking around 1200 and still feels like she is leaking, not wearing a pad Medical History - Information : 4 Para: 1 Term: 1 : 0 Abortions: Spontaneous or Elective: 2 Number of Living Children: 1 - Gestational Age Gestational Age by ALMAS (wks/days): 36 Weeks and 5 Days - History Complications: Smoker Review of Systems - Review of Systems Constitutional: No problems Breast: No problems ENT: No problems Cardiovascular: No problems Respiratory: No problems Gastrointestinal: No problems Genitourinary: No problems Musculoskeletal: No problems Neurological: No problems Skin: No problems Vital Signs - Temperature Temperature: 97.4 F Temperature Source: Temporal Artery Scan - Pulse Right Brachial Pulse Rate: 101 Pulse Assessment Method: Automatic Cuff - Respirations Respiratory Rate: 18 Oxygen Delivery Method: Room Air O2 Sat by Pulse Oximetry: 98 - Blood Pressure Right Arm Blood Pressure: 110/68 Blood Pressure Mean: 82 Blood Pressure Source: Automatic Cuff Medical Screen Scoring (Pre) - Cervical Exam Dilation: 1-3 cm = 1 Effacement: More than 50% = 2 Membranes: Intact - Uterine Contractions Frequency: > or = 36 weeks =2 Duration: N/A Intensity: N/A - Maternal Vital Signs Maternal Temperature: N/A Maternal Blood Pressure: N/A Signs of Preeclampsia: N/A Maternal Respirations: N/A - Maternal Trauma Maternal Trauma: N/A - Assessment - Baby A Baseline FHR: 145 Heart Rate - NICHD Category: Category I (Normal) = 0 NST: Reactive Position: N/A Station: N/A - Total Score - Baby A Total Score - Baby A: 5 - Total Score - Baby B Total Score - Baby B: 5 - Total Score - Baby C Total Score - Baby C: 5 - Level of Risk - Baby A Level of Risk - Baby A: Low (0-5) - Level of Risk - Baby B Level of Risk - Baby B: Low (0-5) - Level of Risk - Baby C Level of Risk - Baby C: Low (0-5) Physician Notification (Pre) - Physician Notified Physician Notified Date: 03/09/20 Physician Notified Time: 15:28 New Order Received: Yes - Notification Comment Comment: amniosure negative, discharge pt home and call for appt for or Sunday Disposition - Disposition OB Disposition: Discharge to home Discharge Date: 03/09/20 Discharge Time: 15:40 I agree with the RN Medical Screening Exam: Yes Risk & Benefit of care provided described in d/c instruction: Yes Diagnosis: FALSE LABOR BEFORE 37 COMPLETED WEEKS OF GEST, THIRD TRI
== END 2020-03-09 15:40 | disposition home or self-care (01) ==
LOC: FBPOP 14:39
PROVIDERS: ATTEND Obstetrics & Gynecology
DX: O47.03 False labor before 37 completed weeks of gestation, third trimester (principal); O99.333 Smoking (tobacco) complicating pregnancy, third trimester; F17.200 Nicotine dependence, unspecified, uncomplicated; Z3A.36 36 weeks gestation of pregnancy
CPT/HCPCS: 59025; 84112; G0463; 99213

== ENCOUNTER 2020-03-23 22:47 | Outpatient (CLI) | payer OTHER ==
[2020-03-23 23:08] VITALS: BP 118/74; PULSE 87; RESP 16; TEMP 97.3
--- NOTE | 2020-03-31 23:12 | P.MSEPDOC ---
Presenting Problems - Arrival Data Date of Arrival on Unit: 03/23/20 Time of Arrival on Unit: 22:44 Mode of Transport: Ambulatory - Complaint OB-Reason for Admission/Chief Complaint: Possible Onset of Labor Medical History - Information : 4 Para: 1 Abortions: Spontaneous or Elective: 2 Number of Living Children: 1 - Gestational Age Gestational Age by ALMAS (wks/days): 38 Weeks and 6 Days Review of Systems - Review of Systems Constitutional: No problems Breast: No problems ENT: No problems Cardiovascular: No problems Respiratory: No problems Gastrointestinal: No problems Genitourinary: No problems Musculoskeletal: No problems Neurological: No problems Skin: No problems Vital Signs - Temperature Temperature: 97.3 F Temperature Source: Temporal Artery Scan - Pulse Right Sitting Brachial Pulse Rate: 87 Pulse Assessment Method: Automatic Cuff - Respirations Respiratory Rate: 16 Oxygen Delivery Method: Room Air O2 Sat by Pulse Oximetry: 98 - Blood Pressure Right Arm Sitting Blood Pressure: 118/74 Blood Pressure Mean: 88 Blood Pressure Source: Automatic Cuff Medical Screen Scoring (Pre) - Cervical Exam Dilation: 4-7 cm = 2 Effacement: More than 50% = 2 Membranes: Intact - Uterine Contractions Frequency: > 5 minutes apart = 1 Duration: > 40 seconds = 2 Intensity: Contraction palpated strong = 1 - Maternal Vital Signs Maternal Temperature: N/A Maternal Blood Pressure: N/A Signs of Preeclampsia: N/A Maternal Respirations: N/A - Maternal Trauma Maternal Trauma: N/A - Assessment - Baby A Baseline FHR: 130 Heart Rate - NICHD Category: Category II (Indeterminate) = 3 NST: Reactive Position: N/A Station: N/A - Total Score - Baby A Total Score - Baby A: 11 - Total Score - Baby B Total Score - Baby B: 8 - Total Score - Baby C Total Score - Baby C: 8 - Level of Risk - Baby A Level of Risk - Baby A: High (10+) - Level of Risk - Baby B Level of Risk - Baby B: Medium (6-9) - Level of Risk - Baby C Level of Risk - Baby C: Medium (6-9) Disposition - Disposition OB Disposition: Discharge to home Discharge Date: 03/24/20 Discharge Time: 00:10 I agree with the RN Medical Screening Exam: Yes Risk & Benefit of care provided described in d/c instruction: Yes Diagnosis: FALSE LABOR BEFORE 37 COMPLETED WEEKS OF GEST, THIRD TRI
== END 2020-03-24 00:10 | disposition home or self-care (01) ==
LOC: FBPOP 22:47
PROVIDERS: ATTEND Obstetrics & Gynecology
DX: O47.03 False labor before 37 completed weeks of gestation, third trimester (principal); Z3A.38 38 weeks gestation of pregnancy
CPT/HCPCS: 59025; G0463; 99213

== ENCOUNTER 2020-03-24 03:28 | Inpatient (IN) | payer OTHER ==
[2020-03-24] MEDS: LACTATED RINGERS 1,000 ML IV SCH ×2 (03:30→04:11)
[2020-03-24] MEDS ORDERED: CARBOPROST TROMETHAMINE 250 MCG/ML 1 ML AMP IM PRN (03:40)
[2020-03-24] MEDS ORDERED: TERBUTALINE 1 MG/ML VIAL SQ PRN (03:40)
[2020-03-24] MEDS ORDERED: METHYLERGONOVINE 0.2 MG/ML 1 ML AMP IM PRN (03:40)
[2020-03-24] MEDS ORDERED: LIDOCAINE 0.5% (PF) 5 MG/ML (50 ML SDV) SQ PRN (03:40)
[2020-03-24] MEDS ORDERED: OXYTOCIN 10 UNIT/ML 1 ML VIAL IM PRN (03:40)
[2020-03-24 03:54] LABS: Basophils % (A) 0 %; Eosinophils # (A) 0.1 k/uL (0-0.7); Eosinophils % (A) 1 %; HCT 33.4 % (34.0-46.0); HGB 11.2 gm/dL (11.4-16.0); Lymphocytes # (A) 4.5 k/uL (1.0-4.8); Lymphocytes % (A) 21 %; MCHC 33.7 g/dL (31.0-37.0); MCV 92.2 fL (80.0-100.0); Mean Platelet Volume 7.6; Monocytes % (A) 5 %; Neutrophils # (A) 14.9 k/uL (1.3-7.7); Neutrophils % (A) 72 %; Platelet Count 236 k/uL (150-450); RBC 3.62 m/uL (3.80-5.40); RDW 12.5 % (11.5-15.5); WBC 20.9 k/uL (3.8-10.6)
[2020-03-24] MEDS ORDERED: HYDROCORTISONE 2.5% RECTAL CREAM 30 GM TUBE RECTAL PRN (05:48)
[2020-03-24] MEDS ORDERED: ACETAMINOPHEN TAB 325 MG TAB PO PRN (05:48)
[2020-03-24] MEDS ORDERED: WITCH HAZEL 1 EACH MED..PAD TOPICAL PRN (05:48)
[2020-03-24] MEDS ORDERED: diphenhydrAMINE 50 MG/ML 1 ML VIAL IVP PRN ×2 (05:48)
[2020-03-24] MEDS ORDERED: diphenhydrAMINE 25 MG CAP PO PRN (05:48)
[2020-03-24] MEDS ORDERED: LANOLIN CREAM 5 GM TUBE TOPICAL PRN (05:48)
[2020-03-24] MEDS ORDERED: diphenhydrAMINE 50 MG CAP PO PRN (05:48)
[2020-03-24] MEDS ORDERED: ZOLPIDEM 5 MG TAB PO PRN (05:48)
[2020-03-24] MEDS ORDERED: SIMETHICONE 80 MG CHEWABLE PO PRN (05:48)
[2020-03-24] MEDS ORDERED: BENZOCAINE/MENTHOL SPRAY 1 GM/SPRAY AEROSOL TOPICAL PRN (05:48)
--- NOTE | 2020-03-24 05:54 | P.HPOB ---
History of Present Illness H&P Date: 03/24/20 Chief Complaint: normal labor 24 year old presents at 38 weeks and 6 days in active labor. Her cervix is 8 cm dilated, 100% effaced, and -2 station. Nalini every 2-4 minutes. heart tones 130 with moderate variability and reactive. Review of Systems All systems: negative Constitutional: Denies chills, Denies fever Eyes: denies blurred vision, denies pain Ears, nose, mouth and throat: Denies headache, Denies sore throat Cardiovascular: Denies chest pain, Denies shortness of breath Respiratory: Denies cough Gastrointestinal: Denies abdominal pain, Denies diarrhea, Denies nausea, Denies vomiting Genitourinary: Denies dysuria, Denies hematuria Musculoskeletal: Denies myalgias Integumentary: Denies pruritus, Denies rash Neurological: Denies numbness, Denies weakness Psychiatric: Denies anxiety, Denies depression Endocrine: Denies fatigue, Denies weight change Past Medical History Past Medical History: No Reported History Additional Past Medical History / Comment(s): Hiatal Hernia. Obstetric history: First was a miscarriage second was a full-term vaginal delivery, third was a miscarriage, this is her fourth . She has had care with me since the first trimester. Blood type is B+, antibodies negative, rubella immune, RPR nonreactive, hepatitis B negative, HIV nonreactive, toxoplasmosis IgG is positive but IgM negative. GBS negative. History of Any Multi-Drug Resistant Organisms: None Reported Past Surgical History: No Surgical Hx Reported Past Anesthesia/Blood Transfusion Reactions: No Reported Reaction Smoking Status: Current every day smoker - Past Family History Mother Additional Family Medical History / Comment(s): asthma Medications and Allergies Home Medications Medication Instructions Recorded Confirmed Type Pnv No.95/Ferrous Fum/Folic AC 1 each PO DAILY 02/26/18 03/24/20 History [ Multivitamin Tablet] Allergies Allergy/AdvReac Type Severity Reaction Status Date / Time Penicillins Allergy Itching Verified 03/24/20 03:40 Exam Osteopathic Statement: *. No significant issues noted on an osteopathic structural exam other than those noted in the History and Physical/Consult. Intake and Output 03/23/20 03/23/20 03/24/20 14:59 22:59 06:59 Other: Weight 64.41 kg Heart: Regular rate and rhythm Lungs: Clear to auscultation bilaterally Abdomen: Soft, nontender Extremities: Negative Homans sign Results Result Diagrams: 03/24/20 03:35 Abnormal Lab Results - Last 24 Hours (Table) 03/24/20 Range/Units 03:35 WBC 20.9 H (3.8-10.6) k/uL RBC 3.62 L (3.80-5.40) m/uL Hgb 11.2 L (11.4-16.0) gm/dL Hct 33.4 L (34.0-46.0) % Neutrophils # 14.9 H (1.3-7.7) k/uL Assessment and Plan (1) Normal labor Current Visit: Yes Status: Acute Code(s): O80 - ENCOUNTER FOR FULL-TERM UNCOMPLICATED DELIVERY; Z37.9 - OUTCOME OF DELIVERY, UNSPECIFIED SNOMED Code(s): 49965980 Plan: 1. Admit to family place 2. Anticipate normal vaginal delivery
[2020-03-24] MEDS ORDERED: OXYTOCIN 20 UNITS/1000 ML NS 1,000 ML IV SCH (06:00)
[2020-03-24] MEDS: IBUPROFEN 600 MG TAB PO PRN ×3 (06:05→23:29)
--- NOTE | 2020-03-24 06:20 | P.PROBDLV ---
Vaginal Delivery Note - . Vaginal Delivery Note: 24 year old presents at 38 weeks and 6 days in active labor. Her cervix is 8 cm dilated, 100% effaced, and -2 station. Nalini every 2-4 minutes. heart tones 130 with moderate variability and reactive. Amniotomy performed at 3:53 AM and clear fluid noted. Her cervix was completely dilated at 4:56 AM. She pushed, delivered a viable male over intact perineum at 5:41 AM. Head delivered OA, anterior shoulder delivered gentle downward guidanc e of a posterior shoulder and rest of body. Nose and mouth bulb suctioned, cord clamped and cut, infant placed on mother's abdomen. Apgars 8, 8, weight 6 pounds 5.9 ounces. Placenta delivered spontaneously, intact with three-vessel cord at 5:43 AM. Vagina, cervix, perineum inspected. No lacerations noted. Estimated blood loss 150 mL. Mother and baby in stable condition.
[2020-03-24] MEDS: SENNOSIDES-DOCUSATE SODIUM 1 EACH TAB PO SCH ×2 (12:30→23:30)
[2020-03-25 05:53] LABS: Basophils # (A) 0.1 k/uL (0-0.2); Basophils % (A) 0 %; Eosinophils # (A) 0.2 k/uL (0-0.7); Eosinophils % (A) 1 %; Lymphocytes # (A) 3.2 k/uL (1.0-4.8); Lymphocytes % (A) 20 %; MCH 30.4 pg (25.0-35.0); MCHC 32.3 g/dL (31.0-37.0); MCV 94.2 fL (80.0-100.0); Mean Platelet Volume 7.9; Monocytes # (A) 0.8 k/uL (0-1.0); Monocytes % (A) 5 %; Neutrophils # (A) 11.9 k/uL (1.3-7.7); Neutrophils % (A) 72 %; Platelet Count 194 k/uL (150-450); RBC 3.29 m/uL (3.80-5.40); RDW 12.6 % (11.5-15.5); WBC 16.4 k/uL (3.8-10.6)
--- NOTE | 2020-03-25 07:34 | P.DS ---
Providers Date of admission: 03/24/20 03:29 Expected date of discharge: 03/25/20 Attending physician: Luly Sharma Primary care physician: Stated None Hospital Course: Irina is doing very well day 1. She is involuting, voiding tolerating her diet. She voices no complaints and requests discharged home today. Vital signs are stable and afebrile. Heart regular, lungs clear, extremities without pain. Abdomen is soft uterus is firm and lochia is reported to be light. Assessment day 1. Plan discharged home follow up with Dr. Sharma in 6 weeks. Discharge instructions thoroughly reviewed and prescription for Motrin 40 to her pharmacy. Patient Condition at Discharge: Good Plan - Discharge Summary New Discharge Prescriptions: New Ibuprofen [Motrin] 600 mg PO Q6HR PRN #30 tab PRN Reason: Pain No Action Pnv No.95/Ferrous Fum/Folic AC [ Multivitamin Tablet] 1 each PO DAILY Discharge Medication List Pnv No.95/Ferrous Fum/Folic AC [ Multivitamin Tablet] 1 each PO DAILY 02/26/18 [History] Ibuprofen [Motrin] 600 mg PO Q6HR PRN #30 tab 03/25/20 [Rx] Follow up Appointment(s)/Referral(s): Luly Sharma DO [Doctor of Osteopathic Medicine] - 6 Weeks Activity/Diet/Wound Care/Special Instructions: No heavy lifting, limit stairs and driving, and pelvic rest. If any high temperatures, heavy bleeding, or severe pain call my office Discharge Disposition: HOME SELF-CARE
[2020-03-25] MEDS: IBUPROFEN 600 MG TAB PO PRN ×2 (07:51→20:21)
[2020-03-25] MEDS: SENNOSIDES-DOCUSATE SODIUM 1 EACH TAB PO SCH ×2 (08:23→20:21)
[2020-03-25 21:04] VITALS: RESP 16
[2020-03-26 08:17] VITALS: BP 114/69; PULSE 74; TEMP 97.8
[2020-03-26] MEDS: SENNOSIDES-DOCUSATE SODIUM 1 EACH TAB PO SCH (08:18)
== END 2020-03-26 15:06 | disposition home or self-care (01) | DRG 807 ==
LOC: FBPOP 03:28 → 4FBP 03:29
PROVIDERS: ADMIT Obstetrics & Gynecology; ATTEND Obstetrics & Gynecology
PROC: 10E0XZZ Delivery of Products of Conception, External Approach (ICD-10-PCS; principal; 2020-03-24)
DX: O99.334 Smoking (tobacco) complicating childbirth (principal); Z37.0 Single live birth; O99.62 Diseases of the digestive system complicating childbirth; F17.200 Nicotine dependence, unspecified, uncomplicated; K44.9 Diaphragmatic hernia without obstruction or gangrene; Z3A.38 38 weeks gestation of pregnancy; Z88.0 Allergy status to penicillin; Z82.5 Family history of asthma and other chronic lower respiratory diseases
CPT/HCPCS: 59025; 85025; 86850; 86900; 86901; 99213

== ENCOUNTER → 2020-06-17 | Outpatient (CLI) | payer OTHER ==
--- NOTE | 2020-06-17 10:16 | CT ---
EXAMINATION TYPE: CT shoulder RT wo con DATE OF EXAM: 06/17/2020 COMPARISON: None HISTORY: displaced fx of scapula CT DLP: 246 mGycm Automated exposure control for dose reduction was used. FINDINGS: There is a comminuted displaced fracture involving the body inferior margin of the scapula with displ acement maximal displacement measures approximately 1 cm. Remaining osseous structures intact. Visualized lung posadas demonstrates a subpleural 4 mm nodule in the right upper lobe as well as an additional 7 mm nodule. Adjacent rib cage intact. IMPRESSION: COMMINUTED DISPLACED FRACTURE OF THE SCAPULA. THERE ALSO RIGHT-SIDED PULMONARY NODULES THE LARGEST MEASURING [address]ER FOLLOW-UP CT [facility] T.
== END | disposition home or self-care (01) ==
LOC: RADCTMAIN 09:34
PROVIDERS: ATTEND Orthopaedic Surgery
DX: S42.111A Displaced fracture of body of scapula, right shoulder, initial encounter for closed fracture (principal)

== ENCOUNTER → 2021-06-10 | Outpatient (CLI) | payer OTHER | END | disposition home or self-care (01) | LOC: LABWHC1 12:39 | PROVIDERS: ATTEND Obstetrics & Gynecology | DX: N91.2 Amenorrhea, unspecified (principal) | CPT/HCPCS: 36415; 84702 ==

== ENCOUNTER 2022-01-31 18:10 | Outpatient (CLI) | payer OTHER ==
[2022-01-31 18:53] VITALS: BP 118/75; PULSE 94; RESP 16; TEMP 97.6
--- NOTE | 2022-02-01 04:46 | P.MSEPDOC ---
Presenting Problems - Arrival Data Date of Arrival on Unit: 01/31/22 Time of Arrival on Unit: 18:10 Mode of Transport: Ambulatory - Complaint OB-Reason for Admission/Chief Complaint: Possible Onset of Labor Comment: Contractions for several weeks; more regular today since 1300 Medical History - Information : 3 Para: 2 Term: 2 : 0 Abortions: Spontaneous or Elective: 0 Number of Living Children: 2 - Gestational Age Gestational Age by ALMAS (wks/days): 36 Weeks and 6 Days Review of Systems - Review of Systems Constitutional: No problems Breast: No problems ENT: No problems Cardiovascular: No problems Respiratory: No problems Gastrointestinal: No problems Genitourinary: No problems Musculoskeletal: No problems Neurological: No problems Skin: No problems Vital Signs - Temperature Temperature: 97.6 F Temperature Source: Temporal Artery Scan - Pulse Right Sitting Brachial Pulse Rate: 94 Pulse Assessment Method: Automatic Cuff - Respirations Respiratory Rate: 16 Oxygen Delivery Method: Room Air O2 Sat by Pulse Oximetry: 96 - Blood Pressure Right Arm Sitting Blood Pressure: 118/75 Blood Pressure Mean: 89 Blood Pressure Source: Automatic Cuff Medical Screen Scoring - Cervical Exam Dilation (cm): 2.5 Effacement (%): 60 Station: -2 Membranes: Intact - Uterine Contractions Frequency From (mins): 2 Frequency To (mins): 8 Duration From (seconds): 20 Duration To (seconds): 40 Intensity: Mild Resting: Soft to palpation - Assessment - Baby A Baseline FHR: 135 Heart Rate - NICHD Category: Category I (Normal) NST: Reactive Physician Notification - Physician Notified Physician Notified Date: 01/31/22 Physician Notified Time: 18:30 Physician: Federico Sim New Order Received: Yes - Notification Comment Comment: Spk c\Dr. Sim, present on unit. Advsd , 36 6/7, c/o contractions q2-5min, pt states has been cameron for weeks. States she had SVE in office by RN and was told she was . SVE today 2.5/60/-2. Firm, Posterior. States pt may be discharged home c\reactive NST, to follow up as scheduled, tomorrow, c\Dr. Sharma. Maternal Triage Index - Prompt/Priority 3 Prompt Priority 3: Yes Criteria Met for Priority 3: 36 6/7, contractions Disposition - Disposition OB Disposition: Discharge to home, Written follow up instructions reviewed Discharge Date: 01/31/22 Discharge Time: 18:47 I agree with the RN Medical Screening Exam: Yes Case reviewed; plan agreed upon as documented in EMR&OBIX.: Yes Diagnosis: FALSE LABOR BEFORE 37 COMPLETED WEEKS OF GEST, THIRD TRI
== END 2022-01-31 18:47 | disposition home or self-care (01) ==
LOC: FBPOP 18:10
PROVIDERS: ATTEND Obstetrics & Gynecology
DX: O47.03 False labor before 37 completed weeks of gestation, third trimester (principal); Z3A.36 36 weeks gestation of pregnancy; Z88.0 Allergy status to penicillin
CPT/HCPCS: 59025; G0463; 99213

== ENCOUNTER 2022-02-13 08:51 | Outpatient (CLI) | payer OTHER ==
[2022-02-13 11:43] VITALS: BP 116/75; PULSE 100; RESP 16; TEMP 98.6
--- NOTE | 2022-02-14 13:13 | P.MSEPDOC ---
Presenting Problems - Arrival Data Date of Arrival on Unit: 02/13/22 Time of Arrival on Unit: 08:51 Mode of Transport: Ambulatory - Complaint OB-Reason for Admission/Chief Complaint: Possible Onset of Labor Comment: Patient presents with contractions that started last night, but she is unable to determine how far apart they are. Denies leaking or vaginal bleeding. Medical History - Information : 5 Para: 2 Term: 2 : 0 Abortions: Spontaneous or Elective: 2 Number of Living Children: 2 - Gestational Age Gestational Age by ALMAS (wks/days): 38 Weeks and 5 Days - History Complications: Smoker Review of Systems - Review of Systems Constitutional: No problems Breast: No problems ENT: No problems Cardiovascular: No problems Respiratory: No problems Gastrointestinal: No problems Genitourinary: No problems Musculoskeletal: No problems Neurological: No problems Skin: No problems Vital Signs - Temperature Temperature: 98.6 F Temperature Source: Temporal Artery Scan - Pulse Pulse Oximetery Pulse Rate: 100 Pulse Assessment Method: Auscultation - Respirations Respiratory Rate: 16 Oxygen Delivery Method: Room Air - Blood Pressure Sitting Blood Pressure: 116/75 Blood Pressure Mean: 88 Blood Pressure Source: Automatic Cuff Medical Screen Scoring - Cervical Exam Dilation (cm): 3.5 Effacement (%): 60 Station: -2 Membranes: Intact - Uterine Contractions Frequency From (mins): 3 Frequency To (mins): 6 Duration From (seconds): 50 Duration To (seconds): 110 Intensity: Mild Resting: Soft to palpation - Assessment - Baby A Baseline FHR: 140 Heart Rate - NICHD Category: Category I (Normal) NST: Reactive Physician Notification - Physician Notified Physician Notified Date: 02/13/22 Physician Notified Time: 10:16 Physician: Luly Sharma New Order Received: Yes - Notification Comment Comment: Keep patient for another hour due to non-reactive NST and recheck in one hour. 1123: Reactive NST obtained, vaginal exam remains unchanged, orders given to discharge home with instructions. Maternal Triage Index - Urgent/Priority 2 Urgent Priority 2: Yes Provider Notified: Luly Sharma Provider Notified Time: 10:16 Criteria Met for Priority 2: 38 5/7 Patient presents with contractions that are 3-6 minutes apart. Denies leaking of vaginal bleeding. Disposition - Disposition OB Disposition: Discharge to home, Written follow up instructions reviewed Discharge Date: 02/13/22 Discharge Time: 11:29 I agree with the RN Medical Screening Exam: Yes Case reviewed; plan agreed upon as documented in EMR&OBIX.: Yes Diagnosis: FALSE LABOR AT OR AFTER 37 COMPLETED WEEKS OF GESTATION
== END 2022-02-13 11:29 | disposition home or self-care (01) ==
LOC: FBPOP 08:51
PROVIDERS: ATTEND Obstetrics & Gynecology
DX: O47.1 False labor at or after 37 completed weeks of gestation (principal); Z3A.38 38 weeks gestation of pregnancy; Z88.0 Allergy status to penicillin
CPT/HCPCS: 59025; G0463; 99213

== ENCOUNTER → 2023-04-03 | Outpatient (CLI) | payer OTHER ==
--- NOTE | 2023-04-03 14:44 | US ---
EXAMINATION TYPE: Transabdominal DATE OF EXAM: 04/03/2023 2:20 PM COMPARISON: NONE CLINICAL INDICATION: Female, 27 years old with history of Z36.89 ENCOUNTER FOR OTHER SPECIFIED ANTENA SILVIA SCREENING; Pt states confirm dates, has no complaints at this time EXAM PERFORMED: Transabdominal (TA) EXAM MEASUREMENTS: GESTATIONAL AGE / DATING Physician Established: (8 weeks/3 days) EDC: 11/10/2023 Dates by LMP: LMP unknown Dates by First Scan: No previous this is first scan Dates by Current Scan for: ( 8 weeks/6 days) EDC: 11/07/2023 MATERNAL ANATOMY Uterus: 9.7 x 6.9 x 7.5 cm Right Ovary: 2.3 x 3.1 x 1.6 cm Left Ovary: 3.2 x 2.7 x 2.5 cm Post CDS / Adnexa: wnl Presence of free fluid: No Presence of corpus luteal cyst: Left Ovary= 2.4 x 1.7 x 2.2 cm Presence of subchorionic bleed: No GESTATION / SURVEY CRL: 2.2 cm (8 weeks/6 days) MSD: wnl Yolk Sac (normal less than 6mm): 3mm Heart Rate: 170 bpm Rhythm: Normal IUP: Viable IUP Single, viable IUP/ No abnormality visualized at this time IMPRESSION: Single live intrauterine gestation with ultrasound age of 8 weeks 6 days which is concordant with skye das established dates.
== END | disposition home or self-care (01) ==
LOC: RADUSWWP 14:07
PROVIDERS: ATTEND Obstetrics & Gynecology
DX: Z36.89 Encounter for other specified antenatal screening (principal); Z3A.08 8 weeks gestation of pregnancy
CPT/HCPCS: 76801

== ENCOUNTER 2023-10-30 13:40 | Outpatient (CLI) | payer OTHER ==
[2023-10-30 15:04] VITALS: BP 110/69; PULSE 95; RESP 16; TEMP 98.8
--- NOTE | 2023-10-31 07:19 | P.MSEPDOC ---
Presenting Problems - Arrival Data Date of Arrival on Unit: 10/30/23 Time of Arrival on Unit: 13:40 Mode of Transport: Ambulatory - Complaint OB-Reason for Admission/Chief Complaint: Vaginal Bleeding Comment: Pt presents to triage with c/o light pink tinged bleeding when wiping after using the bathroom around 1130. Pt states she called the office, who told her to come to triage Medical History - Information : 6 Para: 3 Term: 3 : 0 Abortions: Spontaneous or Elective: 2 Number of Living Children: 3 - Gestational Age Gestational Age by ALMAS (wks/days): 38 Weeks and 3 Days Review of Systems - Review of Systems Constitutional: No problems Breast: No problems ENT: No problems Cardiovascular: No problems Respiratory: No problems Gastrointestinal: No problems Genitourinary: No problems Musculoskeletal: No problems Neurological: No problems Skin: No problems Vital Signs - Temperature Temperature: 98.8 F Temperature Source: Temporal Artery Scan - Pulse Pulse Oximetery Pulse Rate: 95 Pulse Assessment Method: Pulse Oximetry - Respirations Respiratory Rate: 16 Oxygen Delivery Method: Room Air O2 Sat by Pulse Oximetry: 97 - Blood Pressure Right Arm Blood Pressure: 110/69 Blood Pressure Mean: 82 Blood Pressure Source: Automatic Cuff Medical Screen Scoring - Cervical Exam Dilation (cm): 2.5 Effacement (%): 50 Station: -2 Membranes: Intact - Uterine Contractions Resting: Soft to palpation - Assessment - Baby A Baseline FHR: 145 Heart Rate - NICHD Category: Category I (Normal) NST: Reactive Physician Notification - Physician Notified Physician Notified Date: 10/30/23 Physician Notified Time: 14:09 Physician: Federico Sim New Order Received: Yes - Notification Comment Comment: RN spoke with Dr. Sim regarding triage pt c/o light pink tinged bleeding on toilet paper around 1130 but has not had any bleeding since. Reported VS WNL, reactive NST, last cervical exam in office was . Order received to check pt's cervix, if less than 5 cm dilated, pt can be discharged home with education. Maternal Triage Index - Maternal Triage Index Presenting for scheduled procedure w/no complaint: No - Stat/Priority 1 Stat Priority 1: No - Urgent/Priority 2 Urgent Priority 2: No - Prompt/Priority 3 Prompt Priority 3: No - Non-Urgent/Priority 4 Non-Urgent Priority 4: Yes Criteria Met for Priority 4: Non-urgent symptoms Disposition - Disposition OB Disposition: Discharge to home, Written follow up instructions reviewed Discharge Date: 10/30/23 Discharge Time: 14:25 I agree with the RN Medical Screening Exam: Yes Case reviewed; plan agreed upon as documented in EMR&OBIX.: Yes Diagnosis: FALSE LABOR AT OR AFTER 37 COMPLETED WEEKS OF GESTATION
== END 2023-10-30 14:25 | disposition home or self-care (01) ==
LOC: FBPOP 13:40
PROVIDERS: ATTEND Obstetrics & Gynecology
DX: O47.1 False labor at or after 37 completed weeks of gestation (principal); O99.333 Smoking (tobacco) complicating pregnancy, third trimester; F17.200 Nicotine dependence, unspecified, uncomplicated; Z3A.38 38 weeks gestation of pregnancy; Z88.0 Allergy status to penicillin
CPT/HCPCS: 59025; G0463; 99213

== ENCOUNTER 2023-10-31 06:20 | Inpatient (IN) | payer OTHER ==
[2023-10-31] MEDS ORDERED: TERBUTALINE 1 MG/ML VIAL SQ PRN (06:39)
[2023-10-31] MEDS ORDERED: miSOPROStoL 200 MCG TAB PO PRN (06:39)
[2023-10-31] MEDS ORDERED: OXYTOCIN 10 UNIT/ML 1 ML VIAL IM PRN (06:39)
[2023-10-31] MEDS ORDERED: TRANEXAMIC 1,000 MG/100ML-NACL 1,000 MG in EMPTY BAG 1 BAG IV PRN (06:39)
[2023-10-31] MEDS ORDERED: METHYLERGONOVINE 0.2 MG/ML 1 ML AMP IM PRN (06:39)
[2023-10-31] MEDS ORDERED: LIDOCAINE 0.5% (PF) 5 MG/ML (50 ML SDV) SQ PRN (06:39)
[2023-10-31] MEDS ORDERED: CARBOPROST TROMETHAMINE 250 MCG/ML 1 ML AMP IM PRN (06:39)
[2023-10-31] MEDS: LACTATED RINGERS 1,000 ML IV SCH ×2 (06:40→20:36)
[2023-10-31] MEDS ORDERED: OXYTOCIN 30 UNITS/500 ML NS 30 UNIT in SALINE 1 500ML.BAG IV SCH (06:45)
[2023-10-31] MEDS ORDERED: CLINDAMYCIN 900 MG in DEXTROSE 5% IN WATER 50 ML IVPB SCH ×2 (07:00)
[2023-10-31 07:13] LABS: Basophils # (A) 0.1 k/uL (0-0.2); Basophils % (A) 0 %; Eosinophils # (A) 0.1 k/uL (0-0.7); Eosinophils % (A) 1 %; Lymphocytes # (A) 2.6 k/uL (1.0-4.8); Lymphocytes % (A) 15 %; MCHC 33.4 g/dL (31.0-37.0); Mean Platelet Volume 7.4; Monocytes # (A) 1.1 k/uL (0-1.0); Monocytes % (A) 6 %; Neutrophils # (A) 13.2 k/uL (1.3-7.7); Neutrophils % (A) 76 %; Platelet Count 333 k/uL (150-450); RBC 3.54 m/uL (3.80-5.40); RDW 12.5 % (11.5-15.5); WBC 17.3 k/uL (3.8-10.6)
--- NOTE | 2023-10-31 07:15 | P.HPOB ---
History of Present Illness H&P Date: 10/31/23 Chief Complaint: Contractions. This patient is a pleasant 28-year-old 6 para 3 female estimated date of confinement 11/10/2023 estimated gestational age 38-4/7 weeks who presents to labor and delivery with complaints of contractions became strong earlier this morning. Patient's cervix is 4 cm dilated completely effaced with some bloody show consistent with early labor. care is per Dr. Sharma. It appears to be uncomplicated with the exception of tobacco use. Patient did have a positive culture for group B strep. Review of Systems Genitourinary: Reports Menstruation: Reports amenorrhea Past Medical History Additional Past Medical History / Comment(s): Hiatal Hernia, ulcerative colitis. Obstetric history: Patient's had 3 previous term vaginal deliveries. History of Any Multi-Drug Resistant Organisms: None Reported Past Surgical History: Adenoidectomy, Tonsillectomy Past Anesthesia/Blood Transfusion Reactions: No Reported Reaction Past Psychological History: Anxiety Smoking Status: Current every day smoker Past Alcohol Use History: None Reported Past Drug Use History: None Reported - Past Family History Mother Family Medical History: Asthma Additional Family Medical History / Comment(s): asthma Medications and Allergies Home Medications Medication Instructions Recorded Confirmed Type Pnv No.95/Ferrous Fum/Folic AC 1 each PO DAILY 02/26/18 10/30/23 History [ Multivitamin Tablet] Allergies Allergy/AdvReac Type Severity Reaction Status Date / Time Penicillins Allergy Itching Verified 10/31/23 06:32 Exam Vital Signs Temp Pulse Resp BP Pulse Ox 10/31/23 06:46 97.6 F 89 17 111/71 99 Intake and Output 10/30/23 10/31/23 10/31/23 22:59 06:59 14:59 Other: Weight 63.596 kg - OBG Physical Exam Abdomen: bowel sounds normal, no diffuse tenderness, no bruit present, no guarding noted, no hepatomegaly, no splenomegaly, no mass Vulva: both: normal Vagina: normal moisture, no discharge Cervix: no lesion (Cervix is 4 cm dilated completely effaced vertex presentation.), no discharge Uterus: enlarged Results blood work shows she is be positive, rubella immune, RPR is nonreactive, hepatitis B is negative, HIV is nonreactive, Glucola was abnormal with a normal three-hour gtt. Group B strep was positive. Patient also October 09 showed estimated weight to be 4 lbs. 10 oz. Assessment and Plan Assessment: This is a 28-year-old 6 para 3 female 38-4/7 weeks gestation with active labor and positive group B strep. Plan is antibiotic prophylaxis and after 4 hours we'll proceed with artificial rupture membranes and anticipate vaginal delivery. Patient does have a history of fast labors. Dr. Woods will be assuming care this morning in Dr. Sharma's absence. (1) 38 weeks gestation of Current Visit: Yes Status: Acute Code(s): Z3A.38 - 38 WEEKS GESTATION OF SNOMED Code(s): 02965445 (2) Group B streptococcal carriage complicating Current Visit: Yes Status: Acute Code(s): O99.820 - STREPTOCOCCUS B CARRIER STATE COMPLICATING SNOMED Code(s): 409097355994604 (3) Normal labor Current Visit: No Status: Acute Code(s): O80 - ENCOUNTER FOR FULL-TERM U NCOMPLICATED DELIVERY; Z37.9 - OUTCOME OF DELIVERY, UNSPECIFIED SNOMED Code(s): 99757469
--- NOTE | 2023-10-31 13:29 | P.PROBDLV ---
Vaginal Delivery Note - . Vaginal Delivery Note: The patient progressed to complete dilation shortly after artificial rupture membranes with thin meconium noted when she was approximately 8-9 cm. She did receive nitrous oxide for anesthesia. Once reaching complete, she began pushing and pushed for approximately 1 push and infant's head came to a crown. With one further push, the 's head delivered across the perineum followed by the anterior shoulder. She was instructed to stop pushing and nose and mouth were bulb suctioned. She was unable to completely stop pushing and nuchal cord 2 was reduced around the 's body with delivery. Infant was then placed on mother's abdomen after delivery and nose and mouth were again bulb suctioned. Cord was clamped and cut and then infant was taken to warmer for evaluation. A viable female was noted with scores of 9 at 1 minute and 9 at 5 min utes and weight was 5 lbs. 12 oz. The center delivered shortly thereafter, intact, with a three-vessel cord. Uterus contracted well after oxytocin was given and uterine massage was carried out. Inspection of the perineum revealed no perineal lacerations. She did have a small abrasion but this was noted to be hemostatic. Estimated blood loss is approximately 100 mL's. Both mother and infant are in stable condition.
[2023-10-31] MEDS ORDERED: LANOLIN CREAM 5 GM TUBE TOPICAL PRN (13:34)
[2023-10-31] MEDS ORDERED: HYDROCORTISONE 2.5% RECTAL CREAM 30 GM TUBE RECTAL PRN (13:34)
[2023-10-31] MEDS ORDERED: diphenhydrAMINE 50 MG/ML 1 ML VIAL IVP PRN ×2 (13:34)
[2023-10-31] MEDS ORDERED: BENZOCAINE/MENTHOL SPRAY 1 GM/SPRAY AEROSOL TOPICAL PRN (13:34)
[2023-10-31] MEDS ORDERED: ACETAMINOPHEN TAB 325 MG TAB PO PRN (13:34)
[2023-10-31] MEDS ORDERED: ZOLPIDEM 5 MG TAB PO PRN (13:34)
[2023-10-31] MEDS ORDERED: SIMETHICONE 80 MG CHEWABLE PO PRN (13:34)
[2023-10-31] MEDS ORDERED: diphenhydrAMINE 25 MG CAP PO PRN (13:34)
[2023-10-31] MEDS ORDERED: diphenhydrAMINE 50 MG CAP PO PRN (13:34)
[2023-10-31] MEDS: IBUPROFEN 600 MG TAB PO PRN ×2 (13:40→22:11)
[2023-10-31] MEDS: SENNOSIDES-DOCUSATE SODIUM 1 EACH TAB PO SCH (22:11)
[2023-10-31] MEDS ORDERED: CALCIUM CARBONATE 500 MG CHEWABLE PO PRN (23:54)
[2023-11-01 00:40] VITALS: RESP 16
[2023-11-01 06:58] LABS: Basophils # (A) 0.1 k/uL (0-0.2); Basophils % (A) 0 %; Eosinophils # (A) 0.2 k/uL (0-0.7); Eosinophils % (A) 1 %; Lymphocytes # (A) 2.7 k/uL (1.0-4.8); Lymphocytes % (A) 13 %; MCH 31.1 pg (25.0-35.0); MCHC 33.4 g/dL (31.0-37.0); MCV 93.1 fL (80.0-100.0); Mean Platelet Volume 7.8; Monocytes # (A) 1.4 k/uL (0-1.0); Monocytes % (A) 7 %; Neutrophils # (A) 16.3 k/uL (1.3-7.7); Neutrophils % (A) 78 %; Platelet Count 271 k/uL (150-450); RBC 3.22 m/uL (3.80-5.40); RDW 12.9 % (11.5-15.5); WBC 20.9 k/uL (3.8-10.6)
[2023-11-01] MEDS: SENNOSIDES-DOCUSATE SODIUM 1 EACH TAB PO SCH (08:38)
[2023-11-01 08:46] VITALS: BP 110/69; PULSE 76; TEMP 97.4
[2023-11-01] MEDS ORDERED: PRENATAL VIT-IRON-FOLIC ACID 1 EACH TABLET PO SCH (09:00)
--- NOTE | 2023-11-01 09:23 | P.DS ---
Providers Date of admission: 10/31/23 06:35 Expected date of discharge: 11/01/23 Attending physician: Luly Sharma Primary care physician: Stated None Hospital Course: This is a 28-year-old female 6 para 3 at 38-4/7 weeks who presented in active labor. She was given clindamycin due to positive group B streptococcus. Artificial rupture membranes was carried out approximately 5 hours later with thin meconium noted. She delivered shortly thereafter a viable female infant with scores of 9 at 1 minute and 9 at 5 minutes and infant weight of 5 pounds 12 ounces. Her course has been uncomplicated. She is breast- feeding. Lochia is decreasing. Her pain is well-controlled. Vital signs are stable. Abdomen is soft with fundus firm and nontender. Extremities show negative Homans. Impression is status post vaginal delivery day #1. Plan is to discharge home later today. Routine instructions are given. She is advised to follow-up with Dr. Sharma in the office in approximately 6 weeks. She is advised to call the office if she has any further questions or concerns prior to her appointment time. She declines the need for any pain medication. She already has a breast pump at home. Procedures: Spontaneous vaginal delivery of a viable female infant on 10/31/2023 Patient Condition at Discharge: Stable Plan - Discharge Summary Discharge Rx Participant: Yes New Discharge Prescriptions: No Action Pnv No.95/Ferrous Fum/Folic AC [ Multivitamin Tablet] 1 each PO DAILY Discharge Medication List Pnv No.95/Ferrous Fum/Folic AC [ Multivitamin Tablet] 1 each PO DAILY 02/26/18 [History] Follow up Appointment(s)/Referral(s): Luly Sharma DO [Doctor of Osteopathic Medicine] - 12/11/23 10:45 am Activity/Diet/Wound Care/Special Instructions: Instructions 1. Do not begin any exercise program for 3 weeks. 2. Do not resume sexual relations for 3 weeks or longer if uncomfortable. 3. You may take tub baths or showers at any time. 4. You may use tampons if desired after 3 weeks. 5. Keep the area of episiotomy (stitches) clean and dry. 6. If you are not nursing, wear a good fitting, supportive bra during the day and limit fluid intake for at least 1 week to prevent breast engorgement. 7. Call the office, [phone], within the next week to make appointment for your 6 week checkup if it has not already been made. 8. Report any of the following occurrences to the doctor promptly: a. Heavy, excessive bleeding b. Chills, fever c. Burning or frequency of urination d. Pain or redness and breasts if nursing e. Increasing pain or swelling in episiotomy (stitches). In addition to the above instructions, the following additional should be followed: 1. No heavy lifting or straining (exercising) until after 6 week checkup. 2. Keep abdominal incision clean and dry: You may wear a dressing if more comfortable. 3. Make office appointment for 10 days after going home or as instructed by her doctor. Discharge Disposition: HOME SELF-CARE
== END 2023-11-01 14:30 | disposition home or self-care (01) | DRG 560 ==
LOC: FBPOP 06:20 → 4FBP 06:35
PROVIDERS: ADMIT Obstetrics & Gynecology; ATTEND Obstetrics & Gynecology
PROC: 10E0XZZ Delivery of Products of Conception, External Approach (ICD-10-PCS; principal; 2023-10-31)
DX: O99.824 Streptococcus B carrier state complicating childbirth (principal); O77.0 Labor and delivery complicated by meconium in amniotic fluid; O69.81X0 Labor and delivery complicated by cord around neck, without compression, not applicable or unspecified; K51.90 Ulcerative colitis, unspecified, without complications; Z28.310 Unvaccinated for COVID-19; O99.62 Diseases of the digestive system complicating childbirth; K44.9 Diaphragmatic hernia without obstruction or gangrene; Z37.0 Single live birth; Z3A.38 38 weeks gestation of pregnancy; O99.334 Smoking (tobacco) complicating childbirth; F17.200 Nicotine dependence, unspecified, uncomplicated; Z79.899 Other long term (current) drug therapy; Z88.0 Allergy status to penicillin
CPT/HCPCS: 59025; 85025; 86850; 86900; 86901; 99213

== ENCOUNTER 2024-04-11 20:07 | Emergency (ER) | payer OTHER ==
[2024-04-11 20:21] VITALS: TEMP 97.9
--- NOTE | 2024-04-11 20:59 | ED ---
ENT HPI - General Chief complaint: Dental/Oral Stated complaint: Mouth Pain Time Seen by Provider: 04/11/24 20:56 Source: patient, RN notes reviewed Mode of arrival: ambulatory Limitations: no limitations - History of Present Illness Initial comments: 28-year-old female presented to the ER with a chief complaint of dental pain. Patient reports for the past 3 days she has been having an increase in the right lower and upper molar pain. She states she has fractured teeth in both areas and has not followed up with a dentist. She states she has been taking [id number] extra strength Tylenol without relief. She describes it as a sharp shooting pain which is limiting her ability to eat and sleep. She denies any drainage, fevers or chills. Denies any mouth or throat swelling. No other complaints at this time - Related Data Home Medications Medication Instructions Recorded Confirmed Pnv No.95/Ferrous Fum/Folic AC 1 each PO DAILY 02/26/18 10/30/23 [ Multivitamin Tablet] Previous Rx's Medication Instructions Recorded Clindamycin [Cleocin] 450 mg PO Q6H 7 Days #28 cap 04/11/24 Allergies Allergy/AdvReac Type Severity Reaction Status Date / Time Penicillins Allergy Itching Verified 04/11/24 20:16 Review of Systems ROS Statement: Those systems with pertinent positive or pertinent negative responses have been documented in the HPI. ROS Other: All systems not noted in ROS Statement are negative. Past Medical History Past Medical History: No Reported History, Dialysis Additional Past Medical History / Comment(s): Hiatal Hernia, ulcerative colitis. Obstetric history: Patient's had 3 previous term vaginal deliveries. History of Any Multi-Drug Resistant Organisms: None Reported Past Surgical History: Adenoidectomy, Tonsillectomy Past Anesthesia/Blood Transfusion Reactions: No Reported Reaction Past Psychological History: Anxiety, Depression Smoking Status: Current every day smoker Past Alcohol Use History: None Reported Past Drug Use History: None Reported - Past Family History Mother Family Medical History: Asthma Additional Family Medical History / Comment(s): asthma General Exam Limitations: no limitations General appearance: alert, in no apparent distress Eye exam: Present: normal appearance, PERRL, EOMI. Absent: scleral icterus, conjunctival injection, periorbital swelling ENT exam: Present: normal exam, normal oropharynx (Fractured right lower molar. No surrounding erythema or drainable abscess. Fractured right upper molar no surrounding erythema or drainable abscess.), mucous membranes moist (No lower jaw or oropharynx edema), TM's normal bilaterally (No mastoid tenderness) Neck exam: Present: normal inspection, tenderness (Right lower jaw). Absent: meningismus, lymphadenopathy Respiratory exam: Present: normal lung sounds bilaterally. Absent: respiratory distress, wheezes, rales, rhonchi, stridor Cardiovascular Exam: Present: regular rate, normal rhythm, normal heart sounds. Absent: systolic murmur, diastolic murmur, rubs, gallop, clicks Neurological exam: Present: alert, oriented X3, CN II-XII intact Skin exam: Present: warm, dry, intact, normal color. Absent: rash Course Vital Signs 04/11/24 04/11/24 20:17 21:08 Temperature 97.9 F Pulse Rate 69 80 Respiratory 22 18 Rate Blood Pressure 136/79 131/70 O2 Sat by Pulse 98 98 Oximetry Medical Decision Making - Medical Decision Making Was pt. sent in by a medical professional or institution (, PA, GREEN PIPEFITTER, urgent care, hospital, or snf...) When possible be specific @ -No Did you speak to anyone other than the patient for history (EMS, parent, family, police, friend...)? What history was obtained from this source @ -No Did you review nursing and triage notes (agree or disagree)? Why? @ -I reviewed and agree with nursing and triage notes Were old charts reviewed (outside hosp., previous admission, EMS record, old EKG, old radiological studies, urgent care reports/EKG's, snf records)? Report findings @ -No old charts were reviewed Differential Diagnosis (chest pain, altered mental status, abdominal pain women, abdominal pain men, vaginal bleeding, weakness, fever, dyspnea, syncope, headache, dizziness, GI bleed, back pain, seizure, CVA, palpatations, mental health, musculoskeletal)? @ -Tooth ache, fractured tooth, dental abscess, Jose angina This list is not meant to be all-inclusive EKG interpreted by me (3pts min.). @ -None X-rays interpreted by me (1pt min.). @ -None done CT interpreted by me (1pt min.). @ -None done U/S interpreted by me (1pt. min.). @ -None done What testing was considered but not performed or refused? (CT, X-rays, U/S, labs)? Why? @ -None What meds were considered but not given or refused? Why? @ -None Did you discuss the management of the patient with other professionals (professionals i.e. , PA, GREEN PIPEFITTER, lab, RT, psych nurse, licensed master social worker, veterinarian epidemiologist, teacher, air support control officer, casework specialist)? Give summary @ -No Was smoking cessation discussed for >3mins.? @ -I discussed smoking cessation for greater than 3 minutes. The risk of smoking were discussed with the patient including but not limited to risks of cancer, stroke, coronary artery disease and COPD. Also discussed with patient were multiple methods of quitting smoking. Lastly we discussed the financial cost of smoking. Was critical care preformed (if so, how long)? @ -No Were there social determinants of health that impacted care today? How? (Homelessness, low income, unemployed, alcoholism, drug addiction, transportati on, low edu. Level, literacy, decrease access to med. care, [place] [facility], rehab)? @ -No Was there de-escalation of care discussed even if they declined (Discuss DNR or withdrawal of care, Hospice)? DNR status @ -No What co-morbidities impacted this encounter? (DM, HTN, Smoking, COPD, CAD, Cancer, CVA, ARF, Chemo, Hep., AIDS, mental health diagnosis, sleep apnea, morbid obesity)? @ -Smoker Was patient admitted / discharged? Hospital course, mention meds given and route, prescriptions, significant lab abnormalities, going to OR and other pertinent info. @ -Discharged. 28 year old female presenting to the ER with a chief complaint of dental pain. History and physical exam completed. Vitals stable. Patient in no signs of acute distress and nontoxic appearing. Fracture of the right lower and right upper molars. No drainable abscess. No lower mouth or oropharynx swelling. Tenderness to mandible. Patient will be started on clindamycin, first dose in the ER. Tylenol 3 starter pack given. Advise close follow-up with dentist, referral given. Strict return parameters discussed. Patient discharged in stable condition. Patient verbally expressed understanding and agreement with care plan. Case discussed with ED attending, Dr. Estrada. Undiagnosed new problem with uncertain prognosis? @ -No Drug Therapy requiring intensive monitoring for toxicity (Heparin, Nitro, Insulin, Cardizem)? @ -No Were any procedures done? @ -No Diagnosis/symptom? @ -Fractured tooth/dental pain Acute, or Chronic, or Acute on Chronic? @ -Acute Uncomplicated (without systemic symptoms) or Complicated (systemic symptoms)? @ -Uncomplicated Side effects of treatment? @ -No Exacerbation, Progression, or Severe Exacerbation? @ -No Poses a threat to life or bodily function? How? (Chest pain, [place], [place], pneumonia, PE, COPD, DKA, ARF, appy, cholecystitis, CVA, Diverticulitis, Homicidal, Suicidal, threat to staff... and all critical care pts) @ -Low likelihood at this time Disposition Clinical Impression: Fracture of tooth, Toothache Disposition: HOME SELF-CARE Condition: Stable Instructions (If sedation given, give patient instructions): Toothache (ED) Additional Instructions: Complete full course of antibiotics. Follow-up with dentist as soon as possible. Return to the ER for any new or worsening symptoms. Prescriptions: Clindamycin [Cleocin] 450 mg PO Q6H 7 Days #28 cap Is patient prescribed a controlled substance at d/c from ED?: No Referrals: Batsheva Freeman MD [Primary Care Provider] - 1-2 days Stephy Kaufman DDS [STAFF PHYSICIAN] - 1-2 days Gregory Medina DDS [STAFF PHYSICIAN] - 1-2 days Time of Disposition: 20:58
[2024-04-11 21:09] VITALS: BP 131/70; PULSE 80; RESP 18
[2024-04-11] MEDS: CLINDAMYCIN 150 MG CAP PO STA (21:13)
[2024-04-11] MEDS: ACET/COD 300 MG/30 MG STARTER PACK 6 TAB BTL PO STA (21:13)
[2024-04-11] MEDS: BENZOCAINE SPRAY 1 CAN MUCOUS MEM PRN (21:14)
== END 2024-04-11 21:18 | disposition home or self-care (01) ==
LOC: EC 20:07
DX: S02.5XXA Fracture of tooth (traumatic), initial encounter for closed fracture (principal); F17.200 Nicotine dependence, unspecified, uncomplicated; Z88.0 Allergy status to penicillin; X58.XXXA Exposure to other specified factors, initial encounter
CPT/HCPCS: 99282; 99406

== ENCOUNTER 2024-07-02 15:54 | Emergency (ER) | payer OTHER ==
--- NOTE | 2024-07-02 16:34 | ED ---
Female Urogenital HPI - General Chief complaint: Vaginal Bleeding Stated complaint: 8weeks preg, vag bleeding Time Seen by Provider: 07/02/24 16:28 Source: patient, RN notes reviewed Mode of arrival: ambulatory Limitations: no limitations - History of Present Illness Initial comments: This is a 28-year-old female who presents to the emergency department for vaginal bleeding in . Patient is . She first states that she believes she is about 8 weeks , but when asked again states that she is not sure. She is waiting for an appointment at [facility], but states that she likely will not be seen until August. States that the bleeding started yesterday. Denies any pain or cramping associated with this. MD Complaint: vaginal bleeding - Related Data Home Medications Medication Instructions Recorded Confirmed Pnv No.95/Ferrous Fum/Folic AC 1 each PO DAILY 02/26/18 10/30/23 [ Multivitamin Tablet] Previous Rx's Medication Instructions Recorded Clindamycin [Cleocin] 450 mg PO Q6H 7 Days #28 cap 04/11/24 Allergies Allergy/AdvReac Type Severity Reaction Status Date / Time Penicillins Allergy Itching Verified 04/11/24 20:16 Review of Systems ROS Statement: Those systems with pertinent positive or pertinent negative responses have been documented in the HPI. ROS Other: All systems not noted in ROS Statement are negative. Past Medical History Past Medical History: No Reported History, Dialysis Additional Past Medical History / Comment(s): Hiatal Hernia, ulcerative colitis. Obstetric history: Patient's had 3 previous term vaginal deliveries. History of Any Multi-Drug Resistant Organisms: None Reported Past Surgical History: Adenoidectomy, Tonsillectomy Past Anesthesia/Blood Transfusion Reactions: No Reported Reaction Past Psychological History: Anxiety, Depression Smoking Status: Current every day smoker Past Alcohol Use History: None Reported Past Drug Use History: None Reported - Past Family History Mother Family Medical History: Asthma Additional Family Medical History / Comment(s): asthma General Exam - General Exam Comments Initial Comments: Visual Physical Exam Vital signs reviewed General: Well-appearing, nontoxic, no acute distress. Head: Normocephalic, atraumatic Eyes: PERRLA, EOMI ENT: Airway patent Chest: Nonlabored breathing Skin: No visual rash, normal skin tone Neuro: Alert and oriented 3 Musculoskeletal: No gross abnormalities Limitations: no limitations General appearance: alert, in no apparent distress Head exam: Present: atraumatic, normocephalic, normal inspection Respiratory exam: Present: normal lung sounds bilaterally. Absent: respiratory distress, wheezes, rales, rhonchi, stridor Cardiovascular Exam: Present: regular rate, normal rhythm, normal heart sounds. Absent: systolic murmur, diastolic murmur, rubs, gallop, clicks Neurological exam: Present: alert, oriented X3, CN II-XII intact Psychiatric exam: Present: normal affect, normal mood Skin exam: Present: warm, dry, intact, normal color. Absent: rash Course Vital Signs 07/02/24 07/02/24 16:23 19:13 Temperature 98.3 F 98.0 F Pulse Rate 89 56 L Respiratory 16 18 Rate Blood Pressure 125/76 117/75 O2 Sat by Pulse 98 99 Oximetry Medical Decision Making - Medical Decision Making This is a 20-year-old female who presents to the emergency department for vaginal bleeding in . Was pt. sent in by a medical professional or institution? @ -No Did you speak to anyone other than the patient for history? @ -No Did you review nursing and triage notes? @ -Yes, and I agree, it is accurate with regards to the patient's symptoms. Were old charts reviewed? @ -No Differential Diagnosis? @ -Differential Vaginal Bleeding: Spontaneous , threatened , molar , ectopic , incompetent cervix, placenta previa, uterine rupture, dysfunctional uterine bleeding, hemorrhage, uterine fibroids, malignancy, coagulopathy, PID, cervicitis, adenomyosis, vaginal trauma, this is not meant to be an all- inclusive list. EKG interpreted by me (3pts min.)? @ -Not obtained X-rays interpreted by me (1pt min.)? @ -Not obtained CT interpreted by me (1pt min.)? @ -Not obtained U/S interpreted by me (1pt. min.)? @ -OB US obtained. My interpretation is unable to identify an IUP. What testing was considered but not performed? (CT, X-rays, U/S, labs)? Why? @ -None What meds were considered but not given? Why? @ -None Did you discuss the management of the patient with other professionals? @ -No Did you reconcile home meds? @ -No Was smoking cessation discussed for >3mins.? @ -No Was critical care preformed (if so, how long)? @ -No Were there social determinants of health that impacted care today? How? (Homelessness, low income, unemployed, alcoholism, drug addiction, transportation, low edu. Level, literacy, decrease access to med. care, senior living, rehab)? @ -No Was there de-escalation of care discussed even if they declined? (Discuss DNR or withdrawal of care, Hospice)? @ -No What co-morbidities impacted this encounter? (DM, HTN, Smoking, COPD, CAD, Cancer, CVA, Hep., AIDS, mental health diagnosis, sleep apnea, morbid obesity)? @ -None Was patient admitted / discharged? @ -Discharged. Beta-hCG quant is undetectable. Urinalysis demonstrates a lar ge amount of blood. Lab work otherwise unremarkable. Patient is Rh+ and no RhoGAM would be indicated if she were to have a positive test on lab work. Pelvic ultrasound obtained revealing no acute process. Advised that at this point results are not pointing to her being . She was given a lab slip to have her beta-hCG repeated in the next 48 hours. Patient discharged home in stable condition. Case discussed with ED attending Dr. Chance. Return precautions reviewed in depth, the patient is instructed to return to the emergency department with any new, worsening, or concerning symptoms. Patient verbalized understanding. Undiagnosed new problem with uncertain prognosis? @ -None Drug Therapy requiring intensive monitoring for toxicity (Heparin, Nitro, Insulin, Cardizem)? @ -None Were any procedures done? @ -None Diagnosis/symptom? @ -Vaginal bleeding Acute, or Chronic, or Acute on Chronic? @ -Acute Uncomplicated (without systemic symptoms) or Complicated (systemic symptoms)? @ -Uncomplicated Side effects of treatment? @ -None Exacerbation, Progression, or Severe Exacerbation] @ -Not applicable Poses a threat to life or bodily function? @ -No - Lab Data Result diagrams: 07/02/24 17:33 07/02/24 17:33 Lab Results 07/02/24 07/02/24 07/02/24 Range/Units 17:30 17:33 17:33 WBC 6.8 (3.8-10.6) k/uL RBC 4.48 (3.80-5.40) m/uL Hgb 13.5 (11.4-16.0) gm/dL Hct 41.3 (34.0-46.0) % MCV 92.1 (80.0-100.0) fL MCH 30.0 (25.0-35.0) pg MCHC 32.6 (31.0-37.0) g/dL RDW 12.9 (11.5-15.5) % Plt Count 252 (150-450) k/uL MPV 6.9 Neutrophils % 56 % Lymphocytes % 35 % Monocytes % 5 % Eosinophils % 2 % Basophils % 1 % Neutrophils # 3.9 (1.3-7.7) k/uL Lymphocytes # 2.4 (1.0-4.8) k/uL Monocytes # 0.3 (0-1.0) k/uL Eosinophils # 0.1 (0-0.7) k/uL Basophils # 0.0 (0-0.2) k/uL Sodium (137-145) mmol/L Potassium (3.5-5.1) mmol/L Chloride (98-107) mmol/L Carbon Dioxide (22-30) mmol/L Anion Gap mmol/L BUN (7-17) mg/dL Creatinine (0.52-1.04) mg/dL Est GFR (CKD-EPI)AfAm (>60 ml/min/1.73 sqM) Est GFR (CKD-EPI)NonAf (>60 ml/min/1.73 sqM) Glucose (74-99) mg/dL Calcium (8.4-10.2) mg/dL Total Bilirubin (0.2-1.3) mg/dL AST (14-36) U/L ALT (4-34) U/L Alkaline Phosphatase (38-126) U/L Total Protein (6.3-8.2) g/dL Albumin (3.5-5.0) g/dL HCG, Quant mIU/mL Urine Color Red Urine Appearance Cloudy H (Clear) Urine RBC >182 H (0-5) /hpf Urine WBC 12 H (0-5) /hpf Blood Type B Positive Blood Type Recheck B Pos Bld Type Recheck Status No 07/02/24 Range/Units 17:33 WBC (3.8-10.6) k/uL RBC (3.80-5.40) m/uL Hgb (11.4-16.0) gm/dL Hct (34.0-46.0) % MCV (80.0-100.0) fL MCH (25.0-35.0) pg MCHC (31.0-37.0) g/dL RDW (11.5-15.5) % Plt Count (150-450) k/uL MPV Neutrophils % % Lymphocytes % % Monocytes % % Eosinophils % % Basophils % % Neutrophils # (1.3-7.7) k/uL Lymphocytes # (1.0-4.8) k/uL Monocytes # (0-1.0) k/uL Eosinophils # (0-0.7) k/uL Basophils # (0-0.2) k/uL Sodium 138 (137-145) mmol/L Potassium 4.0 (3.5-5.1) mmol/L Chloride 109 H (98-107) mmol/L Carbon Dioxide 21 L (22-30) mmol/L Anion Gap 8 mmol/L BUN 15 (7-17) mg/dL Creatinine 0.66 (0.52-1.04) mg/dL Est GFR (CKD-EPI)AfAm >90 (>60 ml/min/1.73 sqM) Est GFR (CKD-EPI)NonAf >90 (>60 ml/min/1.73 sqM) Glucose 125 H (74-99) mg/dL Calcium 9.9 (8.4-10.2) mg/dL Total Bilirubin 0.5 (0.2-1.3) mg/dL AST 24 (14-36) U/L ALT 14 (4-34) U/L Alkaline Phosphatase 77 (38-126) U/L Total Protein 7.4 (6.3-8.2) g/dL Albumin 4.7 (3.5-5.0) g/dL HCG, Quant <2.4 mIU/mL Urine Color Urine Appearance (Clear) Urine RBC (0-5) /hpf Urine WBC (0-5) /hpf Blood Type Blood Type Recheck Bld Type Recheck Status - Radiology Data Radiology results: report reviewed, image reviewed Disposition Clinical Impression: Vaginal bleeding Disposition: HOME SELF-CARE Additional Instructions: Return to the emergency department with any new, worsening, or concerning symptoms. Take the lab slip to have your hCG count repeated in the next 48 hours. Is patient prescribed a controlled substance at d/c from ED?: No Referrals: Batsheva Freeman MD [Primary Care Provider] - 1-2 days Time of Disposition: 19:04
--- NOTE | 2024-07-02 17:23 | US ---
EXAMINATION TYPE: Transabdominal DATE OF EXAM: 07/02/2024 5:03 PM COMPARISON: NONE CLINICAL INDICATION: Female, 28 years old with history of Vaginal bleeding in ; vaginal blee ding x 2 days. EXAM PERFORMED: Transabdominal (TA) EXAM MEASUREMENTS: GESTATIONAL AGE / DATING Physician Established: Not yet established Dates by LMP: LMP unknown Dates by First Scan: No previous this is first scan Dates by Current Scan for: No IUP seen at this time MATERNAL ANATOMY Uterus: 8.1 x 5.5 x 3.9cm Right Ovary: 2.5 x 1.8 x 1.9cm Left Ovary: 2.8 x 1.7 x 1.3cm Post CDS / Adnexa: wnl Presence of free fluid: No Presence of corpus luteal cyst: possible in rt ovary measuring 7mm Presence of subchorionic bleed: NO GESTATION / SURVEY CRL: Not seen MSD: Not seen IUP: No IUP seen at this time Date of LMP: unknown. Pt thinks she is about 4 weeks pg Beta HcG (if available): N/A Empty uterus, no endometrial thickening IMPRESSION: 1. No evidence of intrauterine gestational sac, correlate with B-hCG. If positive, this could represe nt early , ectopic or spontaneous . Follow up pelvic ultrasound in 5-7 day s and serial beta hCG studies are recommended. [facility], , 07/02/2024 5:21 PM
[2024-07-02 18:01] LABS: Appearance,Urine Cloudy (Clear); Basophils % (A) 1 %; Color,Urine Red; Eosinophils # (A) 0.1 k/uL (0-0.7); Eosinophils % (A) 2 %; HCT 41.3 % (34.0-46.0); HGB 13.5 gm/dL (11.4-16.0); Lymphocytes # (A) 2.4 k/uL (1.0-4.8); Lymphocytes % (A) 35 %; MCHC 32.6 g/dL (31.0-37.0); MCV 92.1 fL (80.0-100.0); Mean Platelet Volume 6.9; Monocytes # (A) 0.3 k/uL (0-1.0); Monocytes % (A) 5 %; Neutrophils # (A) 3.9 k/uL (1.3-7.7); Neutrophils % (A) 56 %; Platelet Count 252 k/uL (150-450); RBC 4.48 m/uL (3.80-5.40); RDW 12.9 % (11.5-15.5); WBC 6.8 k/uL (3.8-10.6)
[2024-07-02 18:09] LABS: ALT 14 U/L (4-34); AST 24 U/L (14-36); African American GFR (CKD) >90 (>60 ml/min/1.73 sqM); Albumin 4.7 g/dL (3.5-5.0); Alkaline Phosphatase 77 U/L (38-126); Anion Gap 8 mmol/L; Blood Urea Nitrogen 15 mg/dL (7-17); Calcium 9.9 mg/dL (8.4-10.2); Carbon Dioxide 21 mmol/L (22-30); Chloride 109 mmol/L (98-107); Glucose 125 mg/dL (74-99); Non-African American GFR(CKD) >90 (>60 ml/min/1.73 sqM); Sodium 138 mmol/L (137-145); Total Bilirubin 0.5 mg/dL (0.2-1.3); Total Protein 7.4 g/dL (6.3-8.2)
[2024-07-02 18:14] LABS: RBC,Urine >182 /hpf (0-5); WBC,Urine 12 /hpf (0-5)
[2024-07-02 18:24] LABS: HCG,Quantitative Serum <2.4 mIU/mL
[2024-07-02 19:15] VITALS: BP 117/75; PULSE 56; RESP 18; TEMP 98
== END 2024-07-02 19:15 | disposition home or self-care (01) ==
LOC: EC 15:54
CPT/HCPCS: 36415; 76801; 80053; 81001; 84702; 85025; 86900; 86901; 87086; 99284

== ENCOUNTER 2025-04-27 06:15 | Inpatient (IN) | payer OTHER ==
[2025-04-27] MEDS ORDERED: TERBUTALINE 1 MG/ML VIAL SQ PRN (07:20)
[2025-04-27] MEDS ORDERED: METHYLERGONOVINE 0.2 MG/ML 1 ML AMP IM PRN (07:20)
[2025-04-27] MEDS ORDERED: TRANEXAMIC 1,000 MG/100ML-NACL 1,000 MG in EMPTY BAG 1 BAG IV PRN (07:20)
[2025-04-27] MEDS ORDERED: CARBOPROST TROMETHAMINE 250 MCG/ML 1 ML AMP IM PRN (07:20)
[2025-04-27] MEDS ORDERED: OXYTOCIN 10 UNIT/ML 1 ML VIAL IM PRN (07:20)
[2025-04-27] MEDS: LACTATED RINGERS 1,000 ML IV SCH (07:47)
[2025-04-27 07:53] LABS: Basophils # (A) 0.09 10*3/uL (0.00-0.10); Basophils % (A) 0.5 %; Eosinophils # (A) 0.11 10*3/uL (0.04-0.35); Eosinophils % (A) 0.6 %; HCT 32.5 % (37.2-46.3); HGB 11.2 g/dL (12.0-15.0); Lymphocytes # (A) 3.14 10*3/uL (0.90-5.00); Lymphocytes % (A) 16.9 %; MCH 31.6 pg (27.0-32.0); MCHC 34.5 g/dL (32.0-37.0); MCV 91.8 fL (80.0-97.0); Monocytes # (A) 1.27 10*3/uL (0.20-1.00); Monocytes % (A) 6.8 %; Neutrophils # (A) 13.74 10*3/uL (1.80-7.70); Neutrophils % (A) 73.9 %; Platelet Count 368 10*3/uL (140-440); RBC 3.54 10*6/uL (4.10-5.20); RDW 13.0 % (11.5-14.5); WBC 18.59 10*3/uL (4.50-10.00)
[2025-04-27] MEDS ORDERED: BUTORPHANOL 1 MG/ML 1 ML VIAL IV PRN (09:41)
--- NOTE | 2025-04-27 09:45 | P.HPOB ---
History of Present Illness H&P Date: 04/27/25 Chief Complaint: 39+ weeks, elective induction The patient is a 29-year-old 7 para 4-0-2-4 admitted at 39+ weeks as established by last menstrual period and confirmed by 6-week ultrasound. She is admitted for elective induction of labor with all signs reassuring, category 1 heart rate tracing. Her has been essentially uncomplicated and group B strep status is positive. She was found to have polyhydramnios in the late third trimester and has had reassuring weekly testing since that time. Obstetrical history: 7 para 4-0-2-4 with 4 term vaginal deliveries without complications. Current statistics are listed in history of present illness. EDC of 05/01/2025 was established by last menstrual period and confirmed by 6-week ultrasound. Laboratory workup demonstrates a blood type of B+ with a negative antibody screen. Rubella status is nonimmune. The remainder of the laboratory workup was within normal limits. 1 hour Glucola was elevated and the patient declined 3-hour glucose tolerance testing but has no risk factors having never had diabetes before. Group B strep status is negative. Gynecologic history: Unremarkable with no history of any infections to include STDs. Review of Systems Review of systems is confined to history of present illness. Past Medical History Past Medical History: No Reported History Additional Past Medical History / Comment(s): Hiatal Hernia, ulcerative colitis. Obstetric history: Patient's had 3 previous term vaginal deliveries. History of Any Multi-Drug Resistant Organisms: None Reported Past Surgical History: Adenoidectomy, Tonsillectomy Past Anesthesia/Blood Transfusion Reactions: No Reported Reaction Past Psychological History: Anxiety, Depression Smoking Status: Current every day smoker Past Alcohol Use History: None Reported Past Drug Use History: None Reported - Past Family History Mother Family Medical History: Asthma Additional Family Medical History / Comment(s): asthma Medications and Allergies Home Medications Medication Instructions Recorded Confirmed Type Pnv No.95/Ferrous Fum/Folic AC 1 each PO DAILY 02/26/18 04/27/25 History [ Multivitamin Tablet] Allergies Allergy/AdvReac Type Severity Reaction Status Date / Time Penicillins Allergy Itching Verified 04/27/25 07:17 Exam Vital Signs Temp Pulse Resp BP Pulse Ox 04/27/25 07:11 97.7 F 77 14 124/79 98 Intake and Output 04/26/25 04/27/25 04/27/25 22:59 06:59 14:59 Other: Weight 62.596 kg In general, this is a well-developed, well-nourished white female in no acute distress. Her heart has a regular rhythm and rate without murmur. Her lungs are clear to auscultation bilaterally in all posadas. Her abdomen is gravid, nondistended, has normal active bowel sounds, is soft, nontender, and without any palpable masses aside from uterine fundus. Her extremities are without any cyanosis, clubbing, or edema and are nontender to palpation bilaterally. Digital cervical examination demonstrates her cervix to be 3 cm dilated, 60% effaced, with the vertex and presentation at -2-3 station. Artificial rupture of membranes is carried out demonstrating clear fluid. Results Result Diagrams: 04/27/25 07:20 Abnormal Lab Results - Last 24 Hours (Table) 04/27/25 Range/Units 07:20 WBC 18.59 H (4.50-10.00) 10*3/uL RBC 3.54 L (4.10-5.20) 10*6/uL Hgb 11.2 L (12.0-15.0) g/dL Hct 32.5 L (37.2-46.3) % Immature Gran # 0.24 H (0.00-0.04) 10*3/uL Neutrophils # 13.74 H (1.80-7.70) 10*3/uL Monocytes # 1.27 H (0.20-1.00) 10*3/uL Assessment and Plan (1) Term Current Visit: Yes Status: Acute Code(s): Z34.80 - ENCOUNTER FOR SUPRVSN OF NORMAL , UNSP TRIMESTER SNOMED Code(s): 02677711 (2) Group B streptococcal carriage complicating Current Visit: Yes Status: Acute Code(s): O99.820 - STREPTOCOCCUS B CARRIER STATE COMPLICATING SNOMED Code(s): 837626140524107 Plan: Antibiotic prophylaxis has been started as has Pitocin augmentation. She has undergone artificial rupture of membranes. She will have close maternal and surveillance and expectant management will be practiced. She is a good candidate for either IV or epidural analgesia, which ever she may choose.
[2025-04-27] MEDS: OXYTOCIN 30 UNITS/500 ML NS 30 UNIT in SALINE 1 500ML.BAG IV SCH (12:17)
[2025-04-27] MEDS: LIDOCAINE 0.5% (PF) 5 MG/ML (50 ML SDV) SQ PRN (14:35)
[2025-04-27] MEDS ORDERED: BENZOCAINE/MENTHOL SPRAY 1 GM/SPRAY AEROSOL TOPICAL PRN (14:49)
[2025-04-27] MEDS ORDERED: SIMETHICONE 80 MG CHEWABLE PO PRN (14:49)
[2025-04-27] MEDS ORDERED: diphenhydrAMINE 25 MG CAP PO PRN (14:49)
[2025-04-27] MEDS ORDERED: HYDROCORTISONE 2.5% RECTAL CREAM 30 GM TUBE RECTAL PRN (14:49)
[2025-04-27] MEDS ORDERED: LANOLIN CREAM 1 GM TUBE TOPICAL PRN (14:49)
[2025-04-27] MEDS ORDERED: ZOLPIDEM 5 MG TAB PO PRN (14:49)
[2025-04-27] MEDS ORDERED: diphenhydrAMINE 50 MG/ML 1 ML VIAL IVP PRN ×2 (14:49)
--- NOTE | 2025-04-27 14:53 | P.PROBDLV ---
Vaginal Delivery Note - . Vaginal Delivery Note: The patient is a 29-year-old 7 para 4-0-2-4 admitted at 39+ weeks as established by good dating parameters. She is admitted for elective induction of labor with all signs reassuring, category 1 heart rate tracing. Her was uncomplicated though she was known to be group B strep positive. She was diagnosed with polyhydramnios in the late third trimester and had reassuring weekly testing. On labor and delivery, she had antibiotic prophylaxis started followed by Pitocin augmentation. She underwent artificial rupture of membranes for clear fluid. She made fairly quick progress through the active phase of labor and ultimately progressed to complete. She pushed over the course of 1 contraction to a normal spontaneous vaginal delivery of a viable 6 pound 10 ounce baby girl with Apgars of 8 at 1 minute and 9 at 5 minutes delivered in the direct occiput anterior position. The placenta was delivered spontaneously, intact, grossly normal with a grossly normal, centrally inserted but very short three-vessel cord. There was a small midline first- degree perineal laceration over the site of a previous laceration which was repaired with a single [id number] stitch of 3-0 chromic catgut without difficulty. Estimated blood loss for the case was approximately 100 mL. There were no complications. All sponge, instrument, and needle counts were correct. Both mother and are resting comfortably in recovery.
[2025-04-27] MEDS ORDERED: OXYTOCIN 30 UNITS/500 ML NS 30 UNIT in SALINE 1 500ML.BAG IV SCH (15:00)
[2025-04-27] MEDS: ACETAMINOPHEN TAB 500 MG TAB PO PRN (16:22)
[2025-04-27] MEDS: SENNOSIDES-DOCUSATE SODIUM 1 EACH TAB PO SCH (19:57)
[2025-04-27] MEDS: IBUPROFEN 800 MG TAB PO PRN (23:28)
[2025-04-28 01:18] VITALS: TEMP 98.1
--- NOTE | 2025-04-28 08:18 | P.DS ---
Providers Date of admission: 04/27/25 06:24 Expected date of discharge: 04/28/25 Attending physician: Alonso Nogueira Primary care physician: Stated None - Discharge Diagnosis(es) (1) Term Current Visit: Yes Status: Acute (2) Group B streptococcal carriage complicating Current Visit: Yes Status: Acute (3) Status post vaginal delivery Current Visit: Yes Status: Acute Hospital Course: The patient is a 29-year-old 7 para 4-0-2-4 admitted at 39+ weeks but good dating parameters for elective induction of labor with a category 1 heart rate tracing. Her was complicated by polyhydramnios in the third trimester with reassuring testing. Group B strep status is positive. On labor delivery, she had antibiotic prophylaxis and Pitocin augmentation started. She underwent artificial rupture of membranes. She progressed through the active phase of labor relatively quickly and then pushed over single contraction to a normal spontaneous vaginal delivery of a viable 6 pound 10 ounce baby girl with Apgars of 8 at 1 minute and 9 at 5 minutes. Her course was unremarkable with vital signs remaining stable and her temperature was afebrile throughout. She was deemed stable for discharge on day #1 and was discharged home to follow-up in the office in 6 weeks time routinely. Discharge instructions included calling for any significantly increased bleeding or foul-smelling lochia, significantly increased fever abdominal pain, perineal complaints, breast complaints, or anything else that concerned her. She was additionally instructed to have nothing in the vagina for at least 6 weeks time to include intercourse. She understood her instructions and agrees to follow-up as noted above. Discharge medications included gocs-iac-lhpctug analgesic pain medications as well as continued vitamins as she has opted to breast-feed. Maternal blood type is B+ and rubella status is nonimmune. She therefore was to receive the MMR vaccinat ion prior to discharge. Procedures: #1. Antibiotic prophylaxis #2. Pitocin augmentation #3. Artificial rupture of membranes #4. Normal spontaneous vaginal delivery #5. Repair of perineal laceration Patient Condition at Discharge: Stable Plan - Discharge Summary Discharge Rx Participant: No New Discharge Prescriptions: No Action Pnv No.95/Ferrous Fum/Folic AC [ Multivitamin Tablet] 1 each PO DAILY Discharge Medication List Pnv No.95/Ferrous Fum/Folic AC [ Multivitamin Tablet] 1 each PO DAILY 05/22/18 [History] Follow up Appointment(s)/Referral(s): Alonso Nogueira MD [STAFF PHYSICIAN] - 06/09/25 10:00 am Discharge Disposition: HOME SELF-CARE
[2025-04-28 08:53] VITALS: BP 101/63; PULSE 78; RESP 15
[2025-04-28 10:20] LABS: Basophils # (A) 0.11 10*3/uL (0.00-0.10); Basophils % (A) 0.5 %; Eosinophils # (A) 0.20 10*3/uL (0.04-0.35); Eosinophils % (A) 0.8 %; HCT 31.4 % (37.2-46.3); HGB 10.5 g/dL (12.0-15.0); Lymphocytes # (A) 4.23 10*3/uL (0.90-5.00); Lymphocytes % (A) 17.3 %; MCH 30.8 pg (27.0-32.0); MCHC 33.4 g/dL (32.0-37.0); MCV 92.1 fL (80.0-97.0); Monocytes # (A) 2.50 10*3/uL (0.20-1.00); Monocytes % (A) 10.3 %; Neutrophils # (A) 17.05 10*3/uL (1.80-7.70); Neutrophils % (A) 69.9 %; Platelet Count 291 10*3/uL (140-440); RBC 3.41 10*6/uL (4.10-5.20); RDW 13.1 % (11.5-14.5); WBC 24.39 10*3/uL (4.50-10.00)
== END 2025-04-28 15:10 | disposition home or self-care (01) | DRG 560 ==
LOC: 4FBP 06:24
PROVIDERS: ADMIT Obstetrics & Gynecology; ATTEND Obstetrics & Gynecology
PROC: 10907ZC Drainage of Amniotic Fluid, Therapeutic from Products of Conception, Via Natural or Artificial Opening (ICD-10-PCS; principal; 2025-04-27)
PROC: 0HQ9XZZ Repair Perineum Skin, External Approach (ICD-10-PCS; principal; 2025-04-27)
PROC: 10E0XZZ Delivery of Products of Conception, External Approach (ICD-10-PCS; principal; 2025-04-27)
DX: O99.824 Streptococcus B carrier state complicating childbirth (principal); O99.334 Smoking (tobacco) complicating childbirth; K44.9 Diaphragmatic hernia without obstruction or gangrene; O70.0 First degree perineal laceration during delivery; F17.200 Nicotine dependence, unspecified, uncomplicated; Z37.0 Single live birth; Z3A.39 39 weeks gestation of pregnancy; Z28.310 Unvaccinated for COVID-19; Z88.0 Allergy status to penicillin
CPT/HCPCS: 85025; 86850; 86900; 86901